=== PATIENT | female | born 1985 | race Caucasian/White ===

== ENCOUNTER → 2019-05-25 | Outpatient (CLI) | payer OTHER ==
--- NOTE | 2019-05-25 12:24 | REP ---
LEFT FOOT, FOUR VIEWS: There is no evidence of an acute fracture, dislocation or intrinsic bone disease. IMPRESSION: No fracture or dislocation. Electronically Signed by Chadwick Sands MD 05/25/2019 05:13 P
== END ==
LOC: M LRY 11:21
PROVIDERS: ATTEND Nurse Practitioner Family
DX: M79.672 Pain in left foot (principal)
CPT/HCPCS: 73630; 96372; G0463; J1885

== ENCOUNTER → 2019-10-02 | Outpatient (REF) | payer OTHER | LOC: M LAB REF 16:55 | PROVIDERS: ATTEND Family Medicine | DX: N76.0 Acute vaginitis (principal) ==

== ENCOUNTER → 2019-12-26 | Outpatient (CLI) | payer OTHER ==
[2019-12-26 15:36] LABS: HEMOGLOBIN A1c 5.1 %
[2019-12-26 15:53] LABS: FREE T4 1.18 NG/DL (0.76-1.46); THYROID STIMULATING HORMONE 1.11 uIU/ML (0.358-3.740)
== END ==
LOC: M PLALAB 11:44
PROVIDERS: ATTEND Family Medicine
DX: R63.5 Abnormal weight gain (principal)

== ENCOUNTER → 2020-05-01 | Outpatient (CLI) | payer OTHER ==
[2020-05-01 10:36] LABS: BASO % 0.3 % (0.0-1.0); BASO % 0.5 % (0.0-1.0); EOS # 0.1 10^3/uL (0.0-0.5); EOS % 2.1 % (0.0-3.0); HEMATOCRIT 44.8 % (36.0-47.0); HEMATOCRIT 45.4 % (36.0-47.0); HEMOGLOBIN 14.6 g/dl (12.0-15.5); HEMOGLOBIN 14.8 g/dl (12.0-15.5); LYMPH # 2.2 10^3/uL (1.5-5.0); LYMPH # 2.5 10^3/uL (1.5-5.0); LYMPH % 36.7 % (24.0-44.0); LYMPH % 37.7 % (24.0-44.0); MEAN CORPUSCULAR HEMOGLOBIN 28.6 pg (27.0-33.0); MEAN CORPUSCULAR HGB CONC 32.6 g/dl (32.0-36.5); MEAN CORPUSCULAR VOLUME 87.8 fl (80.0-96.0); MONO # 0.5 10^3/uL (0.0-0.8); MONO % 7.4 % (0.0-5.0); MONO % 7.6 % (0.0-5.0); NEUTROPHILS # 3.2 10^3/uL (1.5-8.5); NEUTROPHILS # 3.4 10^3/uL (1.5-8.5); NEUTROPHILS % 52.9 % (36.0-66.0); PLATELET COUNT, AUTOMATED 277 10^3/uL (150-450); PLATELET COUNT, AUTOMATED 287 10^3/uL (150-450); RED BLOOD COUNT 5.17 10^6/uL (4.00-5.40); WHITE BLOOD COUNT 6.6 10^3/uL (4.0-10.0)
[2020-05-01 11:05] LABS: ALBUMIN 4.2 GM/DL (3.2-5.2); ALT/SGPT 44 U/L (12-78); BILIRUBIN,TOTAL 0.5 MG/DL (0.2-1.0); BLOOD UREA NITROGEN 8 MG/DL (7-18); CALCIUM LEVEL 9.5 MG/DL (8.5-10.1); CARBON DIOXIDE LEVEL 29 MEQ/L (21-32); CHLORIDE LEVEL 104 MEQ/L (98-107); CREATININE FOR GFR 0.64 MG/DL (0.55-1.30); GLOMERULAR FILTRATION RATE > 60.0 (>60); GLUCOSE, FASTING 84 MG/DL (70-100); POTASSIUM SERUM 4.3 MEQ/L (3.5-5.1); RHEUMATOID FACTOR QUANT < 10.0 IU/ML (<15.0); SODIUM LEVEL 138 MEQ/L (136-145); TOTAL 25(OH) VITAMIN D 34.3 NG/ML (30.0-100.0); TOTAL PROTEIN 7.5 GM/DL (6.4-8.2)
[2020-05-01 11:12] LABS: ALT/SGPT 43 U/L (12-78); BILIRUBIN,TOTAL 0.4 MG/DL (0.2-1.0); BLOOD UREA NITROGEN 7 MG/DL (7-18); CALCIUM LEVEL 9.3 MG/DL (8.5-10.1); CARBON DIOXIDE LEVEL 28 MEQ/L (21-32); CHLORIDE LEVEL 106 MEQ/L (98-107); CREATININE FOR GFR 0.65 MG/DL (0.55-1.30); FREE T4 1.07 NG/DL (0.76-1.46); GLOMERULAR FILTRATION RATE > 60.0 (>60); GLUCOSE, FASTING 86 MG/DL (70-100); IRON (FE) 78 UG/DL (50-170); PERCENT SATURATION 26.6 % (13.2-45.0); POTASSIUM SERUM 4.3 MEQ/L (3.5-5.1); SODIUM LEVEL 140 MEQ/L (136-145); TOTAL IRON BINDING CAPACITY 293 UG/DL (250-450); TOTAL PROTEIN 7.3 GM/DL (6.4-8.2)
[2020-05-01 11:13] LABS: TOTAL 25(OH) VITAMIN D 36.4 NG/ML (30.0-100.0)
[2020-05-01 11:43] LABS: ERYTHROCYTE SEDIMENTATION RATE 5 mm/hr (0-20)
[2020-05-02 14:12] LABS: ANTINUCLEAR ANTIBODIES DIRECT Negative (Negative)
== END ==
LOC: M PLALAB 08:48
PROVIDERS: ATTEND Psychiatry & Neurology Neurology
DX: R53.83 Other fatigue (principal)

== ENCOUNTER → 2020-05-26 | Outpatient (REF) | payer OTHER | LOC: M WUC 15:44 | PROVIDERS: ATTEND Physician Assistant | DX: J02.9 Acute pharyngitis, unspecified (principal) ==

== ENCOUNTER → 2020-09-03 | Outpatient (CLI) | payer OTHER ==
--- NOTE | 2020-09-08 00:45 | ECWPNPC ---
PATIENT NAME: STEPHANIE SEYMOUR : 1985 GENDER: FEMALE VISIT DATE: 09/03/2020 DISCHARGE DATE: 09/03/20925 VISIT LOCKED DATE TIME: PHYSICIAN: GREG FARRAR RESOURCE: GREG FARRAR REASON FOR APPOINTMENT 1. NECK PAIN HISTORY OF PRESENT ILLNESS GENERAL: PLEASANT 35-YEAR-OLD FEMALE REFERRED BY [facility], DR. SITA CASTELAN TO EVALUATE PERSISTENT RIGHT-SIDED NECK PAIN. STATES PAIN BEGAN IN 2017. DENIES PRECIPITATING EVENT. DESCRIBES CONSTANT PAIN THAT EXTENDS INTO THE RIGHT SCAPULAR REGION. PAIN EXTENDS INTO THE RIGHT UPPER ARM. PAIN IS AGGRAVATED BY USE OF RIGHT ARM. MRI OF THE CERVICAL SPINE DONE IN 2019 IS REVIEWED. SHOWING DISC PROTRUSION AT C5-6 AND C6-7. THERE IS ALSO ANNULAR TEAR NOTED AT THOSE 2 LEVELS WELL. HAD CERVICAL EPIDURAL STEROID INJECTION IN 2018 IN [place] AND REPORTS SIGNIFICANT REDUCTION IN PAIN FOR GREATER THAN 2 MONTHS POST PROCEDURE AND THEN PAIN RETURNED TO BASELINE.-HISTORY OF PSEUDOTUMOR CEREBRI AND HAD GAS TORCH BRAZIER SHUNT PLACED IN 2005 WITH RESOLUTION OF ABNORMAL VISION POST SHUNT. FOLLOWING WITH [facility] FOR CHRONIC MIGRAINE HEADACHE AND IS CONSIDERING BOTOX AND/OR OCCIPITAL NERVE BLOCK. REPORTING NORMAL BOWEL AND BLADDER FUNCTION. NO SIGNIFICANT ILLNESS OR WEIGHT LOSS OR GAIN. DENIES SADDLE PARESTHESIAS. FALL RISK SCREENING: SCREENING :NO FALLS REPORTED IN THE LAST YEAR PAIN SCREENING: PATIENT HAS A COMPLAINT OF ACUTE OR CHRONIC PAIN :YES LOCATION OF PAIN:NECK, RIGHT SHOULDER INTENSITY OF PAIN (SCALE OF 1 TO 10):7 WHAT DOES YOUR PAIN FEEL LIKE:ACHING, CONTINOUS, SHARP DURATION:CONTINOUS, CONSTANT, AWAKENS FROM SLEEP PAIN IS INCREASED BY:ACTIVITIES, PROLONGED STANDING PAIN IS DECREASED BY:OTHERS NOTHING HELPS THE PAIN. NURSING NOTE: -. PAIN CENTER INTAKE QUESTIONS: DO YOU HAVE A HISTORY OF MRSA? :NO DO YOU TAKE A BLOOD THINNERS? :NO DO YOU HAVE ANY BLEEDING DISORDERS? :NO ANY NEW NUMBNESS OR WEAKNESS IN YOUR LEGS OR ARMS? :NO ANY PACEMAKER,DEFIBRILLATOR, OR DORSAL COLUMN STIMULATOR? :NO DO YOU HAVE ANY RASHES OR OPEN SORES? :NO ARE YOU ALLERGIC TO IV DYE? :NO ARE YOU DIABETIC? :NO ANY NEW PROBLEMS WITH YOUR MEDICATIONS? :NO HAVE YOU RECEIVED A VACCINE IN THE PAST 30 DAYS? :NO DO YOU PLAN TO RECEIVE A VACCINE IN THE NEXT 21 DAYS? :NO DO YOU NEED ANY PRESCRIPTION? :NO DO YOU TAKE ANY IMMUNOSUPPRESSIVE MEDICATIONS? :NO IS THERE A CHANCE YOU COULD BE ? :NO ARE YOU BREAST FEEDING? :NO CURRENT MEDICATIONS TAKING ADDERALL XR 5 MG CAPSULE EXTENDED RELEASE 24 HOUR 2 CAPSULES IN THE MORNING ORALLY ONCE A DAY TAKING XANAX 0.5 MG TABLET 1 TABLET ORALLY TWICE A DAY, NOTES: PRN TAKING NAPROXEN 500 MG TABLET 1 TABLET WITH FOOD OR MILK NEEDED ORALLY EVERY 12 HRS UNKNOWN PREDNISONE 20 MG TABLET 1 TABLET ORALLY TID X 7 DAYS THEN BID X 2 DAYS THEN DAILY X 2 DAYS UNKNOWN VALTREX 1 GM TABLET 1 TABLET ORALLY THREE TIMES A DAY MEDICATION LIST REVIEWED AND RECONCILED WITH THE PATIENT PAST MEDICAL HISTORY CHRONIC MIGRAINE H/O PSEUDOTUMOR CEREBRI CERVICAL SPONDYLOSIS LEFT CARPAL TUNNEL INCIDENTAL ANEURYSM 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 1DAUGHTER(S) - HEALTHY. SOCIAL HISTORY GENERAL: TOBACCO USE ARE YOU A: NEVER SMOKER LATEX QUESTIONNAIRE LATEX ALLERGY : HAVE YOU EVER DEVELOPED ANY TYPE OF REACTION AFTER HANDLING LATEX PRODUCTS SUCH RUBBER GLOVES, CONDOMS, DIAPHRAGMS, BALLOONS, SOCKS, OR UNDERWEAR?NO LATEX ALLERGY : HAVE YOU EVER DEVELOPED ANY TYPE OF REACTION DURING OR AFTER DENTAL APPOINTMENT, VAGINAL/RECTAL EXAMINATION, SURGICAL PROCEDURE, OR ANY OTHER EXPOSURE?NO LATEX RISK : HAVE YOU EVER HAD ANY DIFFICULTY BREATHING OR HIVES AFTER EATING OR HANDLING ANY FRUITS, OR VEGETABLES; SUCH KIWI, BANANAS, STONE FRUITS, OR CHESTNUTSNO LATEX RISK : DO YOU HAVE A PREVIOUS PERSONAL HISTORY OF MORE THAN NINE SURGERIES, SPINA BIFIDA, OR REPEATED CATHERIZATIONS? NO LATEX RISK : ARE YOU FREQUENTLY EXPOSED TO LATEX PRODUCTS IN YOUR OCCUPATION?NO DATE ASKED : 09/03/2020 ALCOHOL USE: NO. RECREATIONAL DRUG USE DRUG USE?NO LANGUAGE LANGUAGES SPOKEN:INDONESIAN LEARNING BARRIERS / SPECIAL NEEDS BARRIERS TO LEARNING?NO HEARING IMPAIRED?NO VISION IMPAIRED?YES :CORRECTIVE LENSES COGNITIVELY IMPAIRED?NO READINESS TO LEARN?YES LEARNING PREFERENCES?NO LEARNING CAPABILITIES PRESENT?YES EMOTIONAL BARRIERS?NO SPECIAL DEVICES?NO CUSTOMER SERVICE AND SALES CONSULTANT NEEDED?NO HOSPITALIZATION/MAJOR DIAGNOSTIC PROCEDURE FROM SURGERIES REVIEW OF SYSTEMS CONSTITUTIONAL: RECENT ILLNESS DENIES . FEVER DENIES . WEIGHT LOSS DENIES . MUSCULOSKELETAL: JOINT PAIN DENIES . JOINT STIFFNESS DENIES . GASTROENTEROLOGY: BOWEL INCONTINENCE DENIES . BLOOD IN STOOL DENIES . HEMATOLOGY/LYMPH: DENIES . BLEEDING DISORDER DENIES . NEUROLOGY: HISTORY OF SEVERE HEADACHES NOT MENTIONED DENIES . SEIZURES DENIES . CARDIOLOGY: HISTORY OF CHEST PAIN,IRREGULAR HEART BEAT NOT MENTIONED DENIES . SHORTNESS OF BREATH DENIES . RESPIRATORY: COUGH DENIES . SHORTNESS OF BREATH DENIES . ENDOCRINOLOGY: THYROID DISEASE DENIES . DIABETES DENIES . HEENT: CHANGE IN VISION DENIES . LOSS OF HEARING DENIES . TROUBLE SWALLOWING DENIES . PSYCHOLOGY: ANXIETY DENIES . DEPRESSION DENIES . UROLOGY: URINARY INCONTINENCE DENIES . BLOOD IN URINE DENIES . VITAL SIGNS WT 179.6 LBS, WT-KG 179.6 KG, HT 66 IN, BMI 28.99 INDEX, BP 148/92 MM HG, HR 70 /MIN, RR 18 /MIN, TEMP 100.7 F, OXYGEN SAT % 98%, SAFE IN ENV? (Y/N) YES, [facility]: [facility] SIG[facility] OBTAINED AND PROVIDED TO PROVIDER. JUSTINO SALMON MA. EXAMINATION GENERAL EXAMINATION: HEENT:HEAD:, NORMOCEPHALIC, EYES:, EYES NORMAL, NOSE:, NOSE CLEAR, THROAT: NORMAL. LUNGS:LUNG SOUNDS ARE CLEAR. HEART:HEART RATE REGULAR. ABDOMEN:SOFT AND NOT TENDER, NON-DISTENDED. MUSCULOSKELETAL:*. LUMBAR:MUSCLE STRENGTH TESTING 5/5 BILATERAL, PALPATION: NEGATIVE FOR PAIN OVER L/S SPINE. NEGATIVE FOR PAIN OVER L/S PARSPINALS. THORACIC SPINE:NEGATIVE FOR PAIN WITH PALPATION OF THORACIC SPINE. NEGATIVE FOR PAIN WITH PALPATION OF THORACIC PARASPINAL. CERVICAL:NEGATIVE FOR PAIN WITH PALPATION OF CERVICAL SPINE. NEGATIVE FOR PAIN WITH PALPATION OF CERVICAL PARASPINALS. NEGATIVE FOR PAIN WITH PALPATION OF TRAPEZIUS BILAT. SKIN:NORMAL, NO RASH. NEUROLOGIC EXAM:ALERT AND ORIENTED X 3, DTRS 1-2+ IN ALL 4 EXTREMITIES, DENIES UPPER EXTREMETIES SENSORY LOSS, DENIES LOWER EXTREMETIES SENSORY LOSS. DIAGNOSTIC:MRI-CERVICAL SPINE 2019. 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 CLINICAL NOTES: 09/03/2020 PROCEDURE AND PRE-PROCEDURE INFORMATION PROVIDED TO PATIENT. PATIENT VERBALIZED UNDERSTANDING. MERY CALLAHAN. OTHERS CLINICAL NOTES: ISTOP REGISTRY REVIEWED AND DEMONSTRATES COMPLIANCE. . PROCEDURE CODES FA211 ESTABILISHED PATIENT [facility] CHARGE DISPOSITION & COMMUNICATION FOLLOW UP POST PROCEDURE (REASON: CERVICAL EPIDURAL STEROID INJECTION C7, T1) ELECTRONICALLY SIGNED BY RENALDO HANSEN ON 09/07/2020 AT 08:26 AM EST DISCLAIMER : THIS IS A VISIT SUMMARY EXTRACTED FROM THE [employer] CH[facility]. IT IS NOT A COPY OF THE [employer] PROGRESS NOTE. ISABELLA
== END ==
LOC: M PAIN 08:30
PROVIDERS: ATTEND Nurse Practitioner Family
DX: M50.20 Other cervical disc displacement, unspecified cervical region (principal); M54.12 Radiculopathy, cervical region; G43.909 Migraine, unspecified, not intractable, without status migrainosus; Z88.5 Allergy status to narcotic agent; Z88.8 Allergy status to other drugs, medicaments and biological substances; Z79.899 Other long term (current) drug therapy

== ENCOUNTER → 2020-09-07 | Outpatient (CLI) | payer OTHER | LOC: M LABSMTC 12:42 | PROVIDERS: ATTEND Anesthesiology | DX: Z20.828 Contact with and (suspected) exposure to other viral communicable diseases (principal) ==

== ENCOUNTER → 2020-09-11 | Outpatient (CLI) | payer OTHER ==
[~2020-09-11] MED LIST: ISOVUE-M 300 61% 15ML VIAL As Ordered ONE; LIDOCAINE 1% SDV 30ML VIAL As Ordered ONE; NORCO, ANEXSIA 5/325MG TABLET (HYDROcodone/ACETAMINOPHEN) As Ordered ONE; diazePAM 5MG TABLET As Ordered ONE; diphenhydrAMINE 25MG CAP As Ordered ONE; methylPREDNISolone SUSP 40MG/ML 1ML VIAL (DEPO MEDROL) As Ordered ONE
--- NOTE | 2020-09-11 16:05 | REP ---
INDICATION: CERVICAL EPIDURAL STEROID INJECTION. COMPARISON: None. TECHNIQUE: Four views. 12.4 seconds of fluoroscopy time is reported. FINDINGS: A sequence of 4 last image hold fluoroscopically obtained spot radiograph(s) of the cervical spine document(s) needle position(s) and contrast injection associated with injection procedure. IMPRESSION: Procedural imaging. <Electronically signed by Booker Blanton > 09/11/20 1609
--- NOTE | 2020-09-15 00:19 | ECWPNPC ---
"PATIENT NAME: STEPHANIE SEYMOUR : 1985 GENDER: FEMALE VISIT DATE: 09/11/2020 DISCHARGE DATE: 09/11/20 0000 VISIT LOCKED DATE TIME: PHYSICIAN: DWAYNE SORIANO MD RESOURCE: DWAYNE SORIANO MD REASON FOR APPOINTMENT 1. CERVICAL EPIDURAL STEROID INJECTION HISTORY OF PRESENT ILLNESS GENERAL: -. FALL RISK SCREENING: SCREENING :NO FALLS REPORTED IN THE LAST YEAR PAIN SCREENING: PATIENT HAS A COMPLAINT OF ACUTE OR CHRONIC PAIN :YES LOCATION OF PAIN: NECK INTO RIGHT SHOULDER INTENSITY OF PAIN (SCALE OF 1 TO 10):7 WHAT DOES YOUR PAIN FEEL LIKE:CONTINOUS, ACHING, SHARP, SORE DURATION:CONTINOUS, AWAKENS FROM SLEEP PAIN IS INCREASED BY:ACTIVITIES PLAN/GOALS/TREATMENT/INTERVENTION/FOLLOW UP:SEE PLAN NURSING NOTE: -. PAIN CENTER INTAKE QUESTIONS: DO YOU HAVE A HISTORY OF MRSA? :NO DO YOU TAKE A BLOOD THINNERS? :NO DO YOU HAVE ANY BLEEDING DISORDERS? :NO ANY NEW NUMBNESS OR WEAKNESS IN YOUR LEGS OR ARMS? :NO ANY PACEMAKER,DEFIBRILLATOR, OR DORSAL COLUMN STIMULATOR? :NO DO YOU HAVE ANY RASHES OR OPEN SORES? :NO ARE YOU ALLERGIC TO IV DYE? :NO ARE YOU DIABETIC? :NO ANY NEW PROBLEMS WITH YOUR MEDICATIONS? :NO HAVE YOU RECEIVED A VACCINE IN THE PAST 30 DAYS? :NO DO YOU PLAN TO RECEIVE A VACCINE IN THE NEXT 21 DAYS? :NO DO YOU NEED ANY PRESCRIPTION? :NO DO YOU TAKE ANY IMMUNOSUPPRESSIVE MEDICATIONS? :NO ANY HISTORY OF SEIZURES? :NO ANY HISTORY OF CARDIAC ISSUES OR EVENTS? :NO DO YOU HAVE SLEEP APNEA? :NO ANY RECENT HEAD INJURY? :NO DO YOU HAVE ANY NEW INFECTIONS? :NO IS THERE A CHANCE YOU COULD BE ? :NO ARE YOU BREAST FEEDING? :NO WHEN DID YOU LAST EAT? : 09/10 1999 WHEN DID YOU LAST DRINK? : 09/11 08 WHAT DID YOU LAST DRINK? : COFFEE NAME OF PERSON DRIVING YOU HOME? : (MADDY) DO YOU HAVE ANY OTHER QUESTIONS OR CONCERNS? : NO CURRENT MEDICATIONS TAKING ADDERALL XR 5 MG CAPSULE EXTENDED RELEASE 24 HOUR 2 CAPSULES IN THE MORNING ORALLY ONCE A DAY TAKING XANAX 0.5 MG TABLET 1 TABLET ORALLY TWICE A DAY, NOTES: PRN TAKING NAPROXEN 500 MG TABLET 1 TABLET WITH FOOD OR MILK NEEDED ORALLY EVERY 12 HRS UNKNOWN PREDNISONE 20 MG TABLET 1 TABLET ORALLY TID X 7 DAYS THEN BID X 2 DAYS THEN DAILY X 2 DAYS UNKNOWN VALTREX 1 GM TABLET 1 TABLET ORALLY THREE TIMES A DAY MEDICATION LIST REVIEWED AND RECONCILED WITH THE PATIENT PAST MEDICAL HISTORY CHRONIC MIGRAINE H/O PSEUDOTUMOR CEREBRI CERVICAL SPONDYLOSIS LEFT CARPAL TUNNEL INCIDENTAL ANEURYSM 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 ALLERGIES TOPAMAX: BLINDNESS; HISTORY OF OPEN ANGLE GLAUCOMA - ALLERGY LEXAPRO: BLINDNESS - ALLERGY VICODIN: ITCHY - SIDE EFFECTS SOCIAL HISTORY GENERAL: TOBACCO USE ARE YOU A: NEVER SMOKER LATEX QUESTIONNAIRE LATEX ALLERGY : HAVE YOU EVER DEVELOPED ANY TYPE OF REACTION AFTER HANDLING LATEX PRODUCTS SUCH RUBBER GLOVES, CONDOMS, DIAPHRAGMS, BALLOONS, SOCKS, OR UNDERWEAR?NO LATEX ALLERGY : HAVE YOU EVER DEVELOPED ANY TYPE OF REACTION DURING OR AFTER DENTAL APPOINTMENT, VAGINAL/RECTAL EXAMINATION, SURGICAL PROCEDURE, OR ANY OTHER EXPOSURE?NO LATEX RISK : HAVE YOU EVER HAD ANY DIFFICULTY BREATHING OR HIVES AFTER EATING OR HANDLING ANY FRUITS, OR VEGETABLES; SUCH KIWI, BANANAS, STONE FRUITS, OR CHESTNUTSNO LATEX RISK : DO YOU HAVE A PREVIOUS PERSONAL HISTORY OF MORE THAN NINE SURGERIES, SPINA BIFIDA, OR REPEATED CATHERIZATIONS? NO LATEX RISK : ARE YOU FREQUENTLY EXPOSED TO LATEX PRODUCTS IN YOUR OCCUPATION?NO DATE ASKED : 09/11/2020 ALCOHOL USE: NO. RECREATIONAL DRUG USE DRUG USE?NO LANGUAGE LANGUAGES SPOKEN:NEW ZEALANDER LEARNING BARRIERS / SPECIAL NEEDS BARRIERS TO LEARNING?NO HEARING IMPAIRED?NO VISION IMPAIRED?YES COGNITIVELY IMPAIRED?NO :CORRECTIVE LENSES READINESS TO LEARN?YES LEARNING PREFERENCES?NO LEARNING CAPABILITIES PRESENT?YES EMOTIONAL BARRIERS?NO SPECIAL DEVICES?NO MANAGER SUPPORT SERVICES NEEDED?NO VITAL SIGNS WT 180.4 LBS, HT 66 IN, BMI 29.11 INDEX, BP 144/71 MM HG, HR 84 /MIN, RR 18 /MIN, TEMP 98.1 F, OXYGEN SAT % 94%, SAFE IN ENV? (Y/N) YES, NA INITIALS AW 1417, REVIEWED BY: Susanne LEDESMA RN BSN. EXAMINATION GENERAL EXAMINATION: THE PATIENT IS ALERT, ORIENTED TIMES THREE AND COOPERATIVE. LUNGS ARE CLEAR TO AUSCULTATION. HEART SHOWS REGULAR RHYTHM, NO MURMURS AND NO GALLOPS. ASSESSMENTS CERVICAL DISC DISORDER WITH RADICULOPATHY, UNSPECIFIED CERVICAL REGION - M50.10 (PRIMARY) TREATMENT CERVICAL DISC DISORDER WITH RADICULOPATHY, UNSPECIFIED CERVICAL REGION [facility] FLUORO GUIDE SPINE INJECTION (PAIN)[id number] SALINE CARRI LONDONO 09/11/2020 3:02:26 PM > #22 SL STARTED X 1 ATTEMPT IN LEFT FA BY THIS SCIENTIFIC ARTIST. SITE ASYMPTOMATIC. FLUSHES WELL. PATIENT TOLERATED WELL JENNY HAWKINS 09/11/2020 03:35:50 PM - GIVE LACTATED RINGERS KVO SHARRI LEDESMA 09/11/2020 4:35:37 PM > PATIENT GIVEN A TOTAL OF 50 CCS OF LR. MEDICATION: VALIUM TAB 10MG ORALLY (DIAZEPAM)IMANI PALOMO R 09/11/2020 2:40:18 PM > VERIFIED SHARRI LEDESMA 09/11/2020 2:47:28 PM > ADMINISTERED. COMPLETION OF PROCEDURAL VISIT WHEN MEETS CRITERIA MEDICATION: (PAIN) BENADRYL TAB 25MG ORALLY (DIPHENHYDRAMINE)YAMEL PALOMOIL R 09/11/2020 2:40:30 PM > VERIFIED SHARRI LEDESMA 09/11/2020 2:47:48 PM > ADMINISTERED. MEDICATION: (PAIN) NORCO TABLET 5MG/325MG ORALLY (HYDROCODONE/ACETAMINOPHEN)JENNY HAWKINS 09/11/2020 02:22:15 PM - GIVE 2 TABS PETRYAMEL GARNERIL R 09/11/2020 2:40:43 PM > VERIFIED SHARRI LEDESMA 09/11/2020 2:48:10 PM > ADMINISTERED. PROCEDURES PAIN NURSING RECORD PROCEDURE IN ROOM 1507, PHYSICIAN IN ROOM 1532, START 1538, FINISH 1545, PHYSICIAN OUT OF ROOM 1547, OUT OF ROOM 1550, ECG NORMAL SINUS, PATIENT SHIELDED YES, SAFETY STRAP YES, PREP BETADINE IWONA, ASSISTANT TERMINAL MANAGER, DRESSING TEGADERM LOC: SHARRI LEDESMA 09/11/2020 3:07:52 PM > 1. ALERT, ORIENTED, LOC REMAINED AT BASELINE THROUGHOUT THE PROCEDURE RESP: INGE LEDESMAISSA 09/11/2020 3:07:52 PM > 1. REGULAR, NO DYSPNEA COLOR: INGE LEDESMAISSA 09/11/2020 3:07:52 PM > 1. PINK SKIN: CALLIEINGESHARRI 09/11/2020 3:07:52 PM > 1. WARM, DRY POSITION: SHARRI LEDESMA 09/11/2020 3:07:52 PM > 1. PRONE VITALS: SHARRI LEDESMA 09/11/2020 3:21:42 PM > 140/65, 86, 100% RA. SHARRI LEDESMA 09/11/2020 3:30:45 PM > 150/86, 78, 100% RA. SHARRI LEDESMA 09/11/2020 3:42:03 PM > 150/87, 76, 100% RA. SHARRI LEDESMA 09/11/2020 3:44:57 PM > 151/85, 66, 100% RA. SHARRI LEDESMA 09/11/2020 3:59:36 PM > POST PROCEDURE 148/78, 71, 98% RA. COMPLETION OF PROCEDURE APPOINTMENT: POST PAIN 09/09, DRESSING SITE DRY AND INTACT, IV DISCONTINUED, SITE CLEAR, CATHETER INTACT, GAIT STEADY, TEACHING COMPLETED, PATIENT ACKNOWLEDGES UNDERSTANDING YES PATIENT GIVEN POST PROCEDURE INSTRUCTIONS, COVID HANDOUT AND PAIN DIARY, DISCUSSED WITH PATIENT, PATIENT VERBALIZED UNDERSTANDING. Susanne LEDESMA RN BSN, PROCEDURE APPOINTMENT COMPLETED AT BY: Susanne LEDESMA RN AT 1625, PATIENT DELAYED IN LEAVING DUE TO WAITING ON RIDE, PATIENT STABLE AT TIME OF DISCHARGE. PN CERVICAL EPIDURAL PRE PROCEDURE DIAGNOSIS CERVICAL DISC DISORDER WITH RADICULOPATHY POST PROCEDURE DIAGNOSIS CERVICAL DISC DISORDER WITH RADICULOPATHY PROCEDURE CERVICAL EPIDURAL STEROID INJECTION UNDER FLUOROSCOPIC GUIDANCE SURGEON DR. DWAYNE SORIANO SUPERVISOR THROWING DEPARTMENT NONE ANESTHESIA LOCAL PRE PROCEDURE NOTE THE PATIENT HAS A HISTORY OF CHRONIC CERVICAL PAIN. I EVALUATED THE PATIENT AND REVIEWED THE CHART. I WENT OVER THE RISKS, ALTERNATIVES, AND BENEFITS ASSOCIATED WITH THIS PROCEDURE. THE PATIENT WOULD LIKE TO PROCEED AND GIVE CONSENT TO PERFORMED THE PROCEDURE. THE PATIENT DENIES UNEXPLAINABLE WEIGHT LOSS, FEVER, CHILLS, OR NEW CHANGES IN URINARY OR BOWEL CONTROL. THE PATIENT IS COVID-19 NEGATIVE DESCRIPTION OF PROCEDURE THE PATIENT WAS BROUGHT TO THE PROCEDURE ROOM AND PLACED IN THE PRONE POSITION. THE CERVICOTHORACIC AREA WAS CLEANED WITH BETADINE SOLUTION AND DRAPED ASEPTICALLY. THE PROCEDURE WAS DONE UNDER STERILE CONDITIONS. A TIMEOUT WAS PERFORMED WHERE THE CONSENTED SITE WAS VERIFIED WITH EVERYONE IN THE ROOM. UNDER FLUOROSCOPIC GUIDANCE, THE TARGET WAS SELECTED AT THE INTERLAMINAR LEVEL OF C7-T1. I CONFIRMED AGAIN THE SITE OF THE TARGET. LIDOCAINE WAS USED TO NUMB THE SKIN AND THE SUBCUTANEOUS TISSUE BELOW IT. EPIDURAL TUOHY NEEDLE, 17-GAUGE, WAS ADVANCED UNDER FLUOROSCOPIC GUIDANCE AND FOLLOWING PATIENT FEEDBACK UNTIL THE EPIDURAL SPACE WAS REACHED 5 CM DEEP INTO THE SKIN BY THE LOSS OF RESISTANCE TECHNIQUE. ISOVUE-M DYE 30%, 0.25 ML, WAS INJECTED SHOWING ADEQUATE SPREAD OF THE DYE. THEN, A SOLUTION OF 3 ML OF NORMAL SALINE WITH DEPO-MEDROL 40MG WAS INJECTED SLOWLY FOLLOWING PATIENT FEEDBACK. THE MEDICATIONS WERE VERIFIED WITH THE NURSE. THERE WAS NO EVIDENCE OF BLOOD, PARESTHESIA OR CEREBROSPINAL FLUID DURING THE PROCEDURE. ESTIMATED BLOOD LOSS WAS LESS THAN 5 ML. THE PATIENT WAS SENT TO THE RECOVERY ROOM. THE PATIENT WAS MOVING THE EXTREMITIES AND DOING WELL. THERE WERE NO COMPLICATIONS DURING THE PROCEDURE. FLUOROSCOPY TIME WAS 12 SECONDS POST PROCEDURE NOTE THE PATIENT WILL BE SEEN IN A FOLLOW UP IN THE NEXT FEW WEEKS. I AM LOOKING FOR LONG LASTING RELIEF FOR THE PATIENT WITH THIS INTERVENTION. INSTRUCTIONS WERE GIVEN, QUESTIONS WERE ANSWERED, AND THE PATIENT EXPRESSED UNDERSTANDING AND AGREES WITH THE PLAN. I, JENNY HAWKINS, DOCUMENTED THE ABOVE INFORMATION ACTING A SCRIBE FOR DR. SORIANO. I HAVE REVIEWED THE ABOVE DOCUMENT, WRITTEN BY JENNY HAWKINS, VIROLOGIST, AND I VERIFY THAT IT IS ACCURATE PROCEDURE CODES 94736 CERVICAL/THORACIC W/ IMAGING DISPOSITION & COMMUNICATION FOLLOW UP FOLLOW UP WITH COMMERCIAL FINANCE ANALYST (REASON: POST CERVICAL EPIDURAL STEROID INJECTION) ELECTRONICALLY SIGNED BY DWAYNE SORIANO MD, MD ON 09/14/2020 AT 12:54 PM EST DISCLAIMER : THIS IS A VISIT SUMMARY EXTRACTED FROM THE [employer] CHART. IT IS NOT A COPY OF THE [employer] PROGRESS NOTE. MTDIona"
== END ==
LOC: M PAIN 14:00
PROVIDERS: ATTEND Anesthesiology
DX: M50.10 Cervical disc disorder with radiculopathy, unspecified cervical region (principal); G43.709 Chronic migraine without aura, not intractable, without status migrainosus; Z79.899 Other long term (current) drug therapy; Z88.5 Allergy status to narcotic agent; Z88.8 Allergy status to other drugs, medicaments and biological substances
CPT/HCPCS: 62321; J1030; Q9967

== ENCOUNTER → 2020-09-22 | Outpatient (CLI) | payer OTHER ==
[2020-09-23 13:06] LABS: TISSUE TRANSGLUTAMINASE IgA <2 U/mL (0-3); TISSUE TRANSGLUTAMINASE IgG 3 U/mL (0-5)
== END ==
LOC: M PLALAB 09:40
PROVIDERS: ATTEND Physician Assistant
DX: R19.7 Diarrhea, unspecified (principal)

== ENCOUNTER → 2020-09-24 | Outpatient (CLI) | payer OTHER ==
--- NOTE | 2020-09-29 03:06 | ECWPNPC ---
PATIENT NAME: STEPHANIE SEYMOUR : 1985 GENDER: FEMALE VISIT DATE: 09/24/2020 DISCHARGE DATE: 09/24/20 1002 VISIT LOCKED DATE TIME: PHYSICIAN: GREG FARRAR RESOURCE: GREG FARRAR REASON FOR APPOINTMENT 1. POST CERVICAL EPIDURAL STEROID INJECTION C7, T1 HISTORY OF PRESENT ILLNESS DEPRESSION SCREENING: PHQ-2 (2015 EDITION) LITTLE INTEREST OR PLEASURE IN DOING THINGS?NOT AT ALL FEELING DOWN, DEPRESSED, OR HOPELESS?NOT AT ALL TOTAL SCORE0 GENERAL: HERE FOR POST PROCEDURE F/U.HAD LINDA ON 09/11/20.REPORTING IMPROVEMENT-IN RIGHT NECK PAIN THAT CONTINUES TODAY.STATES SHE CONTINUES WITH RIGHT NECK,RIGHT SHOULDER AND THORACIC PAIN WHEN SHE USES RIGHT ARM.DISCUSSED TRIGGER POINT INJECTIONS. FALL RISK SCREENING: SCREENING :NO FALLS REPORTED IN THE LAST YEAR PAIN SCREENING: PATIENT HAS A COMPLAINT OF ACUTE OR CHRONIC PAIN :YES LOCATION OF PAIN:NECK INTENSITY OF PAIN (SCALE OF 1 TO 10):3 WHAT DOES YOUR PAIN FEEL LIKE:ACHING, CONTINOUS DURATION:CONTINOUS, CONSTANT, ALL DAY PAIN IS INCREASED BY:ACTIVITIES PAIN IS DECREASED BY:OTHERS HEAT AND ICE PACK NURSING NOTE: -. PAIN CENTER INTAKE QUESTIONS: DO YOU HAVE A HISTORY OF MRSA? :NO DO YOU TAKE A BLOOD THINNERS? :NO DO YOU HAVE ANY BLEEDING DISORDERS? :NO ANY NEW NUMBNESS OR WEAKNESS IN YOUR LEGS OR ARMS? :NO ANY PACEMAKER,DEFIBRILLATOR, OR DORSAL COLUMN STIMULATOR? :NO DO YOU HAVE ANY RASHES OR OPEN SORES? :NO ARE YOU ALLERGIC TO IV DYE? :NO ARE YOU DIABETIC? :NO ANY NEW PROBLEMS WITH YOUR MEDICATIONS? :NO HAVE YOU RECEIVED A VACCINE IN THE PAST 30 DAYS? :NO DO YOU PLAN TO RECEIVE A VACCINE IN THE NEXT 21 DAYS? :NO DO YOU NEED ANY PRESCRIPTION? :NO DO YOU TAKE ANY IMMUNOSUPPRESSIVE MEDICATIONS? :NO IS THERE A CHANCE YOU COULD BE ? :NO ARE YOU BREAST FEEDING? :NO CURRENT MEDICATIONS TAKING ADDERALL XR 5 MG CAPSULE EXTENDED RELEASE 24 HOUR 2 CAPSULES IN THE MORNING ORALLY ONCE A DAY TAKING XANAX 0.5 MG TABLET 1 TABLET ORALLY TWICE A DAY TAKING NAPROXEN 500 MG TABLET 1 TABLET WITH FOOD OR MILK NEEDED ORALLY EVERY 12 HRS NOT-TAKING PREDNISONE 20 MG TABLET 1 TABLET ORALLY TID X 7 DAYS THEN BID X 2 DAYS THEN DAILY X 2 DAYS NOT-TAKING VALTREX 1 GM TABLET 1 TABLET ORALLY THREE TIMES A DAY MEDICATION LIST REVIEWED AND RECONCILED WITH THE PATIENT PAST MEDICAL HISTORY CHRONIC MIGRAINE H/O PSEUDOTUMOR CEREBRI CERVICAL SPONDYLOSIS LEFT CARPAL TUNNEL INCIDENTAL ANEURYSM 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 ALLERGIES TOPAMAX: BLINDNESS; HISTORY OF OPEN ANGLE GLAUCOMA - ALLERGY LEXAPRO: BLINDNESS - ALLERGY VICODIN: ITCHY - SIDE EFFECTS SOCIAL HISTORY GENERAL: TOBACCO USE ARE YOU A: NEVER SMOKER LATEX QUESTIONNAIRE LATEX ALLERGY : HAVE YOU EVER DEVELOPED ANY TYPE OF REACTION AFTER HANDLING LATEX PRODUCTS SUCH RUBBER GLOVES, CONDOMS, DIAPHRAGMS, BALLOONS, SOCKS, OR UNDERWEAR?NO LATEX ALLERGY : HAVE YOU EVER DEVELOPED ANY TYPE OF REACTION DURING OR AFTER DENTAL APPOINTMENT, VAGINAL/RECTAL EXAMINATION, SURGICAL PROCEDURE, OR ANY OTHER EXPOSURE?NO LATEX RISK : HAVE YOU EVER HAD ANY DIFFICULTY BREATHING OR HIVES AFTER EATING OR HANDLING ANY FRUITS, OR VEGETABLES; SUCH KIWI, BANANAS, STONE FRUITS, OR CHESTNUTSNO LATEX RISK : DO YOU HAVE A PREVIOUS PERSONAL HISTORY OF MORE THAN NINE SURGERIES, SPINA BIFIDA, OR REPEATED CATHERIZATIONS? NO LATEX RISK : ARE YOU FREQUENTLY EXPOSED TO LATEX PRODUCTS IN YOUR OCCUPATION?NO DATE ASKED : 09/24/2020 ALCOHOL USE: NO. RECREATIONAL DRUG USE DRUG USE?NO LANGUAGE LANGUAGES SPOKEN:[place] LEARNING BARRIERS / SPECIAL NEEDS CHANGE FROM LAST VISIT?NO BARRIERS TO LEARNING?NO HEARING IMPAIRED?NO VISION IMPAIRED?YES :CORRECTIVE LENSES COGNITIVELY IMPAIRED?NO READINESS TO LEARN?YES LEARNING PREFERENCES?NO LEARNING CAPABILITIES PRESENT?YES EMOTIONAL BARRIERS?NO SPECIAL DEVICES?NO VALVE SETTER NEEDED?NO REVIEW OF SYSTEMS CONSTITUTIONAL: ANY RECENT FEVER NO, NO . CHILLS NO, NO . WEIGHT CHANGE OF UNKNOWN REASONS NO, NO . GASTROENTEROLOGY: NEW UNEXPLAINABLE CHANGES IN BOWEL CONTROL NO, NO . CONSTIPATION NO, NO . GENITOURINARY: ANY NEW CHANGE IN BLADDER CONTROL? NO, NO . NEUROLOGY: NEW ONSET DIZZINESS OR NEUROLOGICAL CHANGES NOT MENTIONED NO, NO . NEW NUMBNESS OR PAIN PATTERNS NOT MENTIONED AND PERTINENT TO TODAY'S VISIT NO, NO . CARDIOLOGY: NEW CHEST PRESSURE NO, NO . PATIENT DENIES NO, NO . RESPIRATORY: UNEXPLAINABLE COUGH NO, NO . NEW SHORTNESS OF BREATH NO, NO . VITAL SIGNS WT 183 LBS, HT 66 IN, BMI 29.53 INDEX, BP 137/89 MM HG, HR 62 /MIN, RR 18 /MIN, TEMP 97.5 F, OXYGEN SAT % 98%, SAFE IN ENV? (Y/N) YEST.WOLF ORDONEZ. EXAMINATION GENERAL EXAMINATION: GENERALNO ACUTE DISTRESS, WELL NOURISHED AND HYDRATED. PSYCHAPPROPRIATE MOOD AND AFFECT . NECK:NO LYMPHADENOPATHY, SUPPLE. LUNGS:CLEAR TO AUSCULTATION BILATERALLY, NO WHEEZES, RHONCHI, RALES. HEART:NO MURMURS, REGULAR RATE AND RHYTHM. MUSCULOSKELETAL: TRIGGER POINTS:RIGHT NECK,RIGHT SHOULDER,RIGHT THORACIC.PAIN IS AGGREVATED IN THIS AREA WITH ROJM RIGHT ARM. ASSESSMENTS MYALGIA, OTHER SITE - M79.18 (PRIMARY) OTHER CHRONIC PAIN - G89.29 TREATMENT MYALGIA, OTHER SITE MED: PAIN BENADRYL TAB 25MG ORALLY DIPHENHYDRAMINE (ORDERED FOR 10/01/2020) MEDICATION: VALIUM TAB 10MG ORALLY (DIAZEPAM) (ORDERED FOR 10/01/2020) MED: PAIN NORCO TABLET 5MG/325MG ORALLY HYDROCODONE/ACETAMINOPHEN (ORDERED FOR 10/01/2020) SALINE LOCK (ORDERED FOR 10/01/2020) NOTES: TRIGGER POINT INJECTIONS RIGHT NECK,RIGHT SHOULDER,RIGHT THORACIC PRINTED AND REVIEWED PRE PROCEDURE WITH PATIENT JatinderWOLF ORDONEZ. OTHER CHRONIC PAIN PAIN PROCEDURE LOGDATE OF PROCEDURE1PROCEDURE:CERVICAL EPIDURAL STEROID INJECTIONAMOUNT OF PRE SEDATEVALIUM 10MG, BENADRYL 25MG, NORCO 5/325MGRESULT:SOME IMPROVEMENT CONTINUES TODAY PROCEDURE CODES FA211 ESTABILISHED PATIENT [facility] FACILITY CHARGE DISPOSITION & COMMUNICATION FOLLOW UP POST PROC (REASON: TRIGGER POINT INJECTIONS RIGHT NECK,RIGHT SHOULDER,RIGHT THORACIC) ELECTRONICALLY SIGNED BY RENALDO HANSEN ON 09/28/2020 AT 09:27 AM EST DISCLAIMER : THIS IS A VISIT SUMMARY EXTRACTED FROM THE [employer] CHART. IT IS NOT A COPY OF THE [employer] PROGRESS NOTE. ISABELLA
== END ==
LOC: M PAIN 09:15
PROVIDERS: ATTEND Nurse Practitioner Family
DX: G89.29 Other chronic pain (principal); M79.18 Myalgia, other site; G43.709 Chronic migraine without aura, not intractable, without status migrainosus; M47.812 Spondylosis without myelopathy or radiculopathy, cervical region; G51.0 Bell's palsy; Z79.899 Other long term (current) drug therapy; Z88.5 Allergy status to narcotic agent; Z88.8 Allergy status to other drugs, medicaments and biological substances

== ENCOUNTER → 2020-09-27 | Outpatient (CLI) | payer OTHER | LOC: M LABSMTC 11:01 | PROVIDERS: ATTEND Anesthesiology | DX: Z11.52 Encounter for screening for COVID-19 (principal) ==

== ENCOUNTER → 2020-10-02 | Outpatient (CLI) | payer OTHER ==
[~2020-10-02] MED LIST changes: +BUPIVACAINE HCL 0.25% 10ML VIAL As Ordered ONE; +BUPIVACAINE HCL 0.25% 30ML VIAL As Ordered ONE; -ISOVUE-M 300 61% 15ML VIAL As Ordered ONE; -LIDOCAINE 1% SDV 30ML VIAL As Ordered ONE; +TRIAMCINOLONE ACETONIDE SUSP 40 MG/ML VIAL (J3301) As Ordered ONE; -methylPREDNISolone SUSP 40MG/ML 1ML VIAL (DEPO MEDROL) As Ordered ONE
--- NOTE | 2020-10-07 00:52 | ECWPNPC ---
PATIENT NAME: STEPHANIE SEYMOUR : 1985 GENDER: FEMALE VISIT DATE: 10/02/2020 DISCHARGE DATE: 10/02/20 1125 VISIT LOCKED DATE TIME: PHYSICIAN: DWAYNE SORIANO MD RESOURCE: DWAYNE SORIANO MD REASON FOR APPOINTMENT 1. TRIGGER POINT INJECTIONS RIGHT NECK,RIGHT SHOULDER,RIGHT THORACIC HISTORY OF PRESENT ILLNESS GENERAL: -. FALL RISK SCREENING: SCREENING : NO FALLS REPORTED IN THE LAST YEAR. PAIN SCREENING: PATIENT HAS A COMPLAINT OF ACUTE OR CHRONIC PAIN :YES LOCATION OF PAIN:NECK, RIGHT SHOULDER, MID BACK RIGHT THORACIC INTENSITY OF PAIN (SCALE OF 1 TO 10):5 AVERAGING 4-5/10 WHAT DOES YOUR PAIN FEEL LIKE:ACHING, CONTINOUS, SHARP, TENDER, SORE SOMETIMES SHARP DURATION:CONTINOUS, CONSTANT, AWAKENS FROM SLEEP PAIN IS INCREASED BY:ACTIVITIES PAIN IS DECREASED BY: NOTHING PAIN HAS INTERFERED WITH THE FOLLOWING: EVERYTHING NURSING NOTE: -. PAIN CENTER INTAKE QUESTIONS: DO YOU HAVE A HISTORY OF MRSA? :NO DO YOU TAKE A BLOOD THINNERS? :NO DO YOU HAVE ANY BLEEDING DISORDERS? :NO ANY NEW NUMBNESS OR WEAKNESS IN YOUR LEGS OR ARMS? :NO ANY PACEMAKER,DEFIBRILLATOR, OR DORSAL COLUMN STIMULATOR? :NO DO YOU HAVE ANY RASHES OR OPEN SORES? :NO ARE YOU ALLERGIC TO IV DYE? :NO ARE YOU DIABETIC? :NO ANY NEW PROBLEMS WITH YOUR MEDICATIONS? :NO HAVE YOU RECEIVED A VACCINE IN THE PAST 30 DAYS? :NO DO YOU PLAN TO RECEIVE A VACCINE IN THE NEXT 21 DAYS? :NO DO YOU TAKE ANY IMMUNOSUPPRESSIVE MEDICATIONS? :NO ANY HISTORY OF SEIZURES? :NO ANY HISTORY OF CARDIAC ISSUES OR EVENTS? :NO DO YOU HAVE ANY KIDNEY OR LIVER DISEASE? :NO DO YOU HAVE SLEEP APNEA? :NO ANY RECENT HEAD INJURY? :NO DO YOU HAVE ANY NEW INFECTIONS? :NO IS THERE A CHANCE YOU COULD BE ? :NO ARE YOU BREAST FEEDING? :NO WHEN DID YOU LAST EAT? : 10/01/20 56421 WHEN DID YOU LAST DRINK? : 0700 WHAT DID YOU LAST DRINK? : WATER NAME OF PERSON DRIVING YOU HOME? : MADDY DO YOU HAVE ANY OTHER QUESTIONS OR CONCERNS? : NONE CURRENT MEDICATIONS TAKING ADDERALL XR 5 MG CAPSULE EXTENDED RELEASE 24 HOUR 2 CAPSULES IN THE MORNING ORALLY ONCE A DAY TAKING XANAX 0.5 MG TABLET 1 TABLET ORALLY TWICE A DAY, NOTES: 10/01/20 TAKING NAPROXEN 500 MG TABLET 1 TABLET WITH FOOD OR MILK NEEDED ORALLY EVERY 12 HRS, NOTES: 10/01/20 NOT-TAKING PREDNISONE 20 MG TABLET 1 TABLET ORALLY TID X 7 DAYS THEN BID X 2 DAYS THEN DAILY X 2 DAYS NOT-TAKING VALTREX 1 GM TABLET 1 TABLET ORALLY THREE TIMES A DAY MEDICATION LIST REVIEWED AND RECONCILED WITH THE PATIENT PAST MEDICAL HISTORY CHRONIC MIGRAINE H/O PSEUDOTUMOR CEREBRI CERVICAL SPONDYLOSIS LEFT CARPAL TUNNEL INCIDENTAL ANEURYSM 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 RIGHT NECK, SHOULDER AND THORACIC PAIN ALLERGIES TOPAMAX: BLINDNESS; HISTORY OF OPEN ANGLE GLAUCOMA - ALLERGY LEXAPRO: BLINDNESS - ALLERGY VICODIN: ITCHY - ALLERGY SURGICAL HISTORY BRAIN SHUNT 2006 TONISILLECTOMY 2008 SOCIAL HISTORY GENERAL: TOBACCO USE ARE YOU A: NEVER SMOKER LATEX QUESTIONNAIRE LATEX ALLERGY : HAVE YOU EVER DEVELOPED ANY TYPE OF REACTION AFTER HANDLING LATEX PRODUCTS SUCH RUBBER GLOVES, CONDOMS, DIAPHRAGMS, BALLOONS, SOCKS, OR UNDERWEAR?NO LATEX ALLERGY : HAVE YOU EVER DEVELOPED ANY TYPE OF REACTION DURING OR AFTER DENTAL APPOINTMENT, VAGINAL/RECTAL EXAMINATION, SURGICAL PROCEDURE, OR ANY OTHER EXPOSURE?NO LATEX RISK : HAVE YOU EVER HAD ANY DIFFICULTY BREATHING OR HIVES AFTER EATING OR HANDLING ANY FRUITS, OR VEGETABLES; SUCH KIWI, BANANAS, STONE FRUITS, OR CHESTNUTSNO LATEX RISK : DO YOU HAVE A PREVIOUS PERSONAL HISTORY OF MORE THAN NINE SURGERIES, SPINA BIFIDA, OR REPEATED CATHERIZATIONS? NO LATEX RISK : ARE YOU FREQUENTLY EXPOSED TO LATEX PRODUCTS IN YOUR OCCUPATION?NO DATE ASKED : 10/01/2020 ALCOHOL USE: NO. ALCOHOL SCREENING DID YOU HAVE A DRINK CONTAINING ALCOHOL IN THE PAST YEAR?NO POINTS0 INTERPRETATIONNEGATIVE RECREATIONAL DRUG USE DRUG USE?NO LANGUAGE LANGUAGES SPOKEN:[place] LEARNING BARRIERS / SPECIAL NEEDS CHANGE FROM LAST VISIT?NO BARRIERS TO LEARNING?NO HEARING IMPAIRED?NO VISION IMPAIRED?YES :CORRECTIVE LENSES COGNITIVELY IMPAIRED?NO READINESS TO LEARN?YES LEARNING PREFERENCES?NO LEARNING CAPABILITIES PRESENT?YES EMOTIONAL BARRIERS?NO SPECIAL DEVICES?NO LOADER HELPER NEEDED?NO ADVANCE DIRECTIVE ADVANCE DIRECTIVE DISCUSSED WITH PATIENT: PATIENT DECLINED INFORMATION ON HCP AT THIS TIME HOSPITALIZATION/MAJOR DIAGNOSTIC PROCEDURE FROM SURGERIES VITAL SIGNS WT 181.4 LBS, HT 66 IN, BMI 29.28 INDEX, BP 140/73 MM HG, HR 59 /MIN, RR 18 /MIN, TEMP 98.1 F, OXYGEN SAT % 98%, SAFE IN ENV? (Y/N) YES, NA INITIALS AW 0911, REVIEWED BY: APA. DEWEY RN. EXAMINATION GENERAL EXAMINATION: A HISTORY AND PHYSICAL EXAM ON THE PATIENT WAS DONE ON 09/24/2020 (DATE OF ORIGINAL ASSESSMENT) IN PREPARATION OF SURGERY/PROCEDURE. I HAVE NOW REASSESSED THIS PATIENT'S HEALTH STATUS AND PERFORMED AN UPDATED EXAM TODAY. ALL CHANGES IN THE PATIENT'S HISTORY, PHYSICAL EXAM, PRE-EXISTING CONDITONS, AND INDICATIONS/CONTRAINDICATIONS TO THE PLANNED PROCEDURE AND ANESTHESIA ARE DOCUMENTED AND EVALUATED BELOW. I ATTEST TO THE ADEQUACY AND APPROPRIATENESS OF MY ASSESSMENT, AND CONFIRM THE NECESSITY FOR THE PLANNED PROCEDURE. THE PATIENT IS ALERT, ORIENTED TIMES THREE AND COOPERATIVE. LUNGS ARE CLEAR TO AUSCULTATION. HEART SHOWS REGULAR RHYTHM, NO MURMURS AND NO GALLOPS. ASSESSMENTS MYALGIA, OTHER SITE - M79.18 (PRIMARY) TREATMENT MYALGIA, OTHER SITE LAB: COMPLETION OF PROCEDURAL VISIT WHEN MEETS CRITERIA (ORDERED FOR 10/02/2020) IMANI PALOMO R 10/02/2020 10:34:40 AM > CRITERIA MET MEDICATION: VALIUM TAB 10MG ORALLY (DIAZEPAM)NONI CAM 10/02/2020 9:20:02 AM > VERIFIED DEWEYIMANI R 10/02/2020 9:23:42 AM > ADMINISTERED MED: PAIN BENADRYL TAB 25MG ORALLY DIPHENHYDRAMINEMAUREAnders,NONI 10/02/2020 9:20:18 AM > VERIFIED DEWEYIMANI R 10/02/2020 9:23:58 AM > ADMINSTERED MED: PAIN NORCO TABLET 5MG/325MG ORALLY HYDROCODONE/ACETAMINOPHENMAURER,NONI 10/02/2020 9:20:37 AM > VERIFIED DEWEYIMANI R 10/02/2020 9:24:11 AM > ADMINSTERED OTHERS NOTES: 10/01/20 1234 PRE-PROCEDURE CALL COMPLETED. Ramya WILKS RN . PROCEDURES PAIN NURSING RECORD PROCEDURE IN ROOM 0909, PHYSICIAN IN ROOM 0944, START 0951, FINISH 0957, PHYSICIAN OUT OF ROOM 0958, OUT OF ROOM 1014, ECG N/A, PATIENT SHIELDED N/A, SAFETY STRAP N/A, PREP ALCOHOL DR. SORIANO, DRESSING TEGADERM Ramya PALOMO RN LOC: IMANI PALOMO 10/02/2020 9:55:49 AM > 1. ALERT, ORIENTED RESP: IMANI PALOMO R 10/02/2020 9:55:52 AM > 1. REGULAR, NO DYSPNEA COLOR: IMANI PALOMO R 10/02/2020 9:55:56 AM > 1. PINK SKIN: IMANI PALOMO R 10/02/2020 9:55:59 AM > 1. WARM, DRY POSITION: IMANI PALOMO R 10/02/2020 9:56:03 AM > 5. SITTING VITALS: IMANI PALOMO R 10/02/2020 10:11:16 AM > 147/84, 69, 18, 99% COMPLETION OF PROCEDURE APPOINTMENT: POST PAIN 2, DRESSING SITE DRY AND INTACT, IV N/A, GAIT STEADY, TEACHING COMPLETED, PATIENT ACKNOWLEDGES UNDERSTANDING YES, PROCEDURE APPOINTMENT COMPLETED AT 1014 BY: Ramya PALOMO RN PN TRIGGER POINT INJECTION WITH STEROIDS PRE PROCEDURE DIAGNOSIS 1. MYALGIA 2. PAIN AT RIGHT NECK AREA, RIGHT SHOULD AREA AND RIGHT THORACIC AREA POST PROCEDURE DIAGNOSIS 1. MYALGIA 2. PAIN AT RIGHT NECK AREA, RIGHT SHOULD AREA AND RIGHT THORACIC AREA PROCEDURE TRIGGER POINT INJECTION AT RIGHT NECK AREA, RIGHT SHOULD AREA AND RIGHT THORACIC AREA SURGEON DR. DWAYNE SORIANO HOME CARE CONSULTANT NONE ANESTHESIA LOCAL PRE PROCEDURE NOTE THE PATIENT HAS A HISTORY OF CHRONIC PAIN AT THE RIGHT NECK AREA, RIGHT SHOULD AREA AND RIGHT THORACIC AREA. I EVALUATED THE PATIENT AND REVIEWED THE CHART. THERE IS EVIDENCE OF BANDS OF TISSUE WITH RESTRICTION OF MOVEMENT AND PRESENCE OF TRIGGER POINT AT THE RIGHT NECK AREA, RIGHT SHOULD AREA AND RIGHT THORACIC AREA. I WENT OVER THE RISKS, ALTERNATIVES, AND BENEFITS ASSOCIATED WITH THIS PROCEDURE. THE PATIENT WOULD LIKE TO PROCEED AND GIVE CONSENT TO PERFORMED THE PROCEDURE. THE PATIENT DENIES UNEXPLAINABLE WEIGHT LOSS, FEVER, CHILLS, OR NEW CHANGES IN URINARY OR BOWEL CONTROL. THE PATIENT IS COVID-19 NEGATIVE DESCRIPTION OF PROCEDURE THE PATIENT WAS BROUGHT TO THE PROCEDURE ROOM AND PLACED IN THE SITTING POSITION. THE AREA WAS CLEANED WITH ALCOHOL. THE PROCEDURE WAS DONE USING ASEPTIC STERILE TECHNIQUE. A TIMEOUT WAS PERFORMED WHERE THE CONSENTED SITE WAS VERIFIED WITH EVERYONE IN THE ROOM. USING A 25-GAUGE NEEDLE, TRIGGER POINTS WERE INJECTED AT THE RIGHT NECK AREA, RIGHT SHOULD AREA AND RIGHT THORACIC AREA WITH A TOTAL OF 40 ML OF BUPIVACAINE 0.25% AND KENALOG 40 MG. THE MEDICATIONS WERE VERIFIED WITH THE NURSE. THERE WAS NO EVIDENCE OF BLOOD OR PARESTHESIA DURING THE PROCEDURE. THE PATIENT WAS SENT TO THE RECOVERY ROOM. THE PATIENT WAS MOVING THE EXTREMITIES AND DOING WELL. THERE WERE NO COMPLICATIONS DURING THE PROCEDURE. ESTIMATED BLOOD LOSS WAS LESS THAN 5 ML POST PROCEDURE NOTE THE PROCEDURE DONE WAS DISCUSSED WITH THE PATIENT. THE PATIENT WILL BE SEEN IN A FOLLOW UP IN THE NEXT FEW WEEKS. I AM LOOKING FOR LONG LASTING PAIN RELIEF FOR THE PATIENT WITH THIS INTERVENTION. INSTRUCTIONS WERE GIVEN, QUESTIONS WERE ANSWERED, AND THE PATIENT EXPRESSED UNDERSTANDING AND AGREES WITH THE PLAN. I, JENNY HAWKINS, DOCUMENTED THE ABOVE INFORMATION ACTING A SCRIBE FOR DR. SORIANO. I HAVE REVIEWED THE ABOVE DOCUMENT, WRITTEN BY JENNY HAWKINS, YOUTH PASTOR, AND I VERIFY THAT IT IS ACCURATE `. PROCEDURE CODES 15757 INJECT TRIGGER POINTS 3/> DISPOSITION & COMMUNICATION FOLLOW UP FOLLOW UP WITH PMO ANALYST (REASON: POST TRIGGER POINT INJECTION RIGHT NECK, RIGHT SHOULDER, RIGHT THORACIC ) ELECTRONICALLY SIGNED BY DWAYNE SORIANO MD, MD ON 10/06/2020 AT 01:59 PM EST DISCLAIMER : THIS IS A VISIT SUMMARY EXTRACTED FROM THE [employer] CHART. IT IS NOT A COPY OF THE [employer] PROGRESS NOTE. ISABELLA
== END ==
LOC: M PAIN 09:15
PROVIDERS: ATTEND Anesthesiology
DX: M79.18 Myalgia, other site (principal); G43.709 Chronic migraine without aura, not intractable, without status migrainosus; M47.812 Spondylosis without myelopathy or radiculopathy, cervical region; G51.0 Bell's palsy; Z79.899 Other long term (current) drug therapy; Z88.5 Allergy status to narcotic agent; Z88.8 Allergy status to other drugs, medicaments and biological substances
CPT/HCPCS: 20553; J3301

== ENCOUNTER → 2020-10-16 | Outpatient (CLI) | payer OTHER ==
--- NOTE | 2020-10-22 02:54 | ECWPNPC ---
PATIENT NAME: STEPHANIE SEYMOUR : 1985 GENDER: FEMALE VISIT DATE: 10/16/2020 DISCHARGE DATE: 10/16/20 1130 VISIT LOCKED DATE TIME: PHYSICIAN: GREG FARRAR RESOURCE: GREG FARRAR REASON FOR APPOINTMENT 1. POST TRIGGER POINT INJECTIONS RIGHT NECK,RIGHT SHOULDER,RIGHT THORACIC HISTORY OF PRESENT ILLNESS GENERAL: HERE FOR POST PROCEDURE FOLLOW-UP. HAD TRIGGER POINT INJECTIONS, RIGHT NECK ON 10/02/2020. PATIENT REPORTS IMPROVEMENT IN HER PAIN. SHE STILL HAS A SMALL AREA THAT IS PROBLEMATIC.-. FALL RISK SCREENING: SCREENING : NO FALLS REPORTED IN THE LAST YEAR. PAIN SCREENING: PATIENT HAS A COMPLAINT OF ACUTE OR CHRONIC PAIN :YES LOCATION OF PAIN:NECK, BOTH SHOULDERS INTENSITY OF PAIN (SCALE OF 1 TO 10):2 WHAT DOES YOUR PAIN FEEL LIKE:ACHING DURATION:CONTINOUS, CONSTANT, ALL DAY PAIN IS INCREASED BY:ACTIVITIES PAIN IS DECREASED BY:OTHERS HEAT AND ICE " NOTHING " NURSING NOTE: -. PAIN CENTER INTAKE QUESTIONS: DO YOU HAVE A HISTORY OF MRSA? :NO DO YOU TAKE A BLOOD THINNERS? :NO DO YOU HAVE ANY BLEEDING DISORDERS? :NO ANY NEW NUMBNESS OR WEAKNESS IN YOUR LEGS OR ARMS? :NO ANY PACEMAKER,DEFIBRILLATOR, OR DORSAL COLUMN STIMULATOR? :NO DO YOU HAVE ANY RASHES OR OPEN SORES? :NO ARE YOU ALLERGIC TO IV DYE? :NO ARE YOU DIABETIC? :NO ANY NEW PROBLEMS WITH YOUR MEDICATIONS? :NO HAVE YOU RECEIVED A VACCINE IN THE PAST 30 DAYS? :NO DO YOU PLAN TO RECEIVE A VACCINE IN THE NEXT 21 DAYS? :NO DO YOU NEED ANY PRESCRIPTION? :NO DO YOU TAKE ANY IMMUNOSUPPRESSIVE MEDICATIONS? :NO IS THERE A CHANCE YOU COULD BE ? :NO ARE YOU BREAST FEEDING? :NO CURRENT MEDICATIONS TAKING ADDERALL XR 5 MG CAPSULE EXTENDED RELEASE 24 HOUR 2 CAPSULES IN THE MORNING ORALLY ONCE A DAY TAKING XANAX 0.5 MG TABLET 1 TABLET ORALLY TWICE A DAY TAKING NAPROXEN 500 MG TABLET 1 TABLET WITH FOOD OR MILK NEEDED ORALLY EVERY 12 HRS NOT-TAKING PREDNISONE 20 MG TABLET 1 TABLET ORALLY TID X 7 DAYS THEN BID X 2 DAYS THEN DAILY X 2 DAYS NOT-TAKING VALTREX 1 GM TABLET 1 TABLET ORALLY THREE TIMES A DAY MEDICATION LIST REVIEWED AND RECONCILED WITH THE PATIENT PAST MEDICAL HISTORY CHRONIC MIGRAINE H/O PSEUDOTUMOR CEREBRI CERVICAL SPONDYLOSIS LEFT CARPAL TUNNEL INCIDENTAL ANEURYSM 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 RIGHT NECK, SHOULDER AND THORACIC PAIN ALLERGIES TOPAMAX: BLINDNESS; HISTORY OF OPEN ANGLE GLAUCOMA - ALLERGY LEXAPRO: BLINDNESS - ALLERGY VICODIN: ITCHY - ALLERGY SOCIAL HISTORY GENERAL: TOBACCO USE ARE YOU A: NEVER SMOKER LATEX QUESTIONNAIRE LATEX ALLERGY : HAVE YOU EVER DEVELOPED ANY TYPE OF REACTION AFTER HANDLING LATEX PRODUCTS SUCH RUBBER GLOVES, CONDOMS, DIAPHRAGMS, BALLOONS, SOCKS, OR UNDERWEAR?NO LATEX ALLERGY : HAVE YOU EVER DEVELOPED ANY TYPE OF REACTION DURING OR AFTER DENTAL APPOINTMENT, VAGINAL/RECTAL EXAMINATION, SURGICAL PROCEDURE, OR ANY OTHER EXPOSURE?NO LATEX RISK : HAVE YOU EVER HAD ANY DIFFICULTY BREATHING OR HIVES AFTER EATING OR HANDLING ANY FRUITS, OR VEGETABLES; SUCH KIWI, BANANAS, STONE FRUITS, OR CHESTNUTSNO LATEX RISK : DO YOU HAVE A PREVIOUS PERSONAL HISTORY OF MORE THAN NINE SURGERIES, SPINA BIFIDA, OR REPEATED CATHERIZATIONS? NO LATEX RISK : ARE YOU FREQUENTLY EXPOSED TO LATEX PRODUCTS IN YOUR OCCUPATION?NO DATE ASKED : 10/16/2020 ALCOHOL USE: NO. ALCOHOL SCREENING DID YOU HAVE A DRINK CONTAINING ALCOHOL IN THE PAST YEAR?NO POINTS0 INTERPRETATIONNEGATIVE RECREATIONAL DRUG USE DRUG USE?NO LANGUAGE LANGUAGES SPOKEN:[place] LEARNING BARRIERS / SPECIAL NEEDS CHANGE FROM LAST VISIT?NO BARRIERS TO LEARNING?NO HEARING IMPAIRED?NO VISION IMPAIRED?YES :CORRECTIVE LENSES COGNITIVELY IMPAIRED?NO READINESS TO LEARN?YES LEARNING PREFERENCES?NO LEARNING CAPABILITIES PRESENT?YES EMOTIONAL BARRIERS?NO SPECIAL DEVICES?NO POWDER HAND NEEDED?NO ADVANCE DIRECTIVE ADVANCE DIRECTIVE DISCUSSED WITH PATIENT: PATIENT DECLINED INFORMATION ON HCP AT THIS TIME REVIEW OF SYSTEMS CONSTITUTIONAL: ANY RECENT FEVER NO, NO . CHILLS NO, NO . WEIGHT CHANGE OF UNKNOWN REASONS NO, NO . GASTROENTEROLOGY: NEW UNEXPLAINABLE CHANGES IN BOWEL CONTROL NO, NO . CONSTIPATION NO, NO . GENITOURINARY: ANY NEW CHANGE IN BLADDER CONTROL? NO, NO . NEUROLOGY: NEW ONSET DIZZINESS OR NEUROLOGICAL CHANGES NOT MENTIONED NO, NO . NEW NUMBNESS OR PAIN PATTERNS NOT MENTIONED AND PERTINENT TO TODAY'S VISIT NO, NO . CARDIOLOGY: NEW CHEST PRESSURE NO, NO . PATIENT DENIES NO, NO . RESPIRATORY: UNEXPLAINABLE COUGH NO, NO . NEW SHORTNESS OF BREATH NO, NO . VITAL SIGNS WT 180.4 LBS, HT 66 IN, BMI 29.11 INDEX, BP 143/79 MM HG, HR 80 /MIN, RR 18 /MIN, TEMP 97.3 F, OXYGEN SAT % 99%, SAFE IN ENV? (Y/N) YES, NA INITIALS SC 10:13T.WOLF ORDONEZ. EXAMINATION GENERAL EXAMINATION: GENERALAWAKE,ALERT ,PLEASANT . PSYCHAFFECT NORMAL . LUNGS:LUNG RODRIGUEZ ARE CLEAR TO AUSCULTATION BILATERALLY. GOOD MOVEMENT OF AIR . HEART:S1, S2 IN A REGULAR RATE AND RHYTHM. NO SIGNIFICANT MURMURS, RUBS OR GALLOPS NOTED . ASSESSMENTS MYALGIA, OTHER SITE - M79.18 (PRIMARY) OTHER CHRONIC PAIN - G89.29 TREATMENT MYALGIA, OTHER SITE REFERRAL TO:PHYSICAL THERAPIST REASON:2XWK X 6 WKS,MASSAGE,MYOFASCIAL RELEASE OTHER CHRONIC PAIN PAIN PROCEDURE LOGDATE OF PROCEDURE10/02/2020ROCEDURE:TRIGGER POINT INJECTION RIGHT NEK,RIGHT SHOULDER, RIGHT THORACICAMOUNT OF PRE SEDATEVALIUM 10, BENADRYL 25MG, HYDROCODONE 5/325MGRESULT:IMPROVEMENT PROCEDURE CODES FA211 ESTABILISHED PATIENT [facility] CHARGE DISPOSITION & COMMUNICATION FOLLOW UP 2 MONTHS (REASON: FOLLOW-UP PHYSICAL THERAPY) ELECTRONICALLY SIGNED BY RENALDO HANSEN ON 10/21/2020 AT 01:17 PM EDT DISCLAIMER : THIS IS A VISIT SUMMARY EXTRACTED FROM THE [employer] CHART. IT IS NOT A COPY OF THE [employer] PROGRESS NOTE. ISABELLA
== END ==
LOC: M PAIN 10:00
PROVIDERS: ATTEND Nurse Practitioner Family
DX: G89.29 Other chronic pain (principal); M79.18 Myalgia, other site; G43.709 Chronic migraine without aura, not intractable, without status migrainosus; M47.812 Spondylosis without myelopathy or radiculopathy, cervical region; Z79.899 Other long term (current) drug therapy; Z88.5 Allergy status to narcotic agent; Z88.8 Allergy status to other drugs, medicaments and biological substances

== ENCOUNTER → 2020-10-30 | Outpatient (CLI) | payer OTHER ==
[~2020-10-30] MED LIST changes: -BUPIVACAINE HCL 0.25% 10ML VIAL As Ordered ONE; -BUPIVACAINE HCL 0.25% 30ML VIAL As Ordered ONE; +ISOVUE-370 76% 100ML VIAL As Ordered ONE; -NORCO, ANEXSIA 5/325MG TABLET (HYDROcodone/ACETAMINOPHEN) As Ordered ONE; -TRIAMCINOLONE ACETONIDE SUSP 40 MG/ML VIAL (J3301) As Ordered ONE; -diazePAM 5MG TABLET As Ordered ONE; -diphenhydrAMINE 25MG CAP As Ordered ONE
--- NOTE | 2020-10-30 15:39 | REPVR ---
PROCEDURE INFORMATION: Exam: CT Angiography Head With Contrast Exam date and time: 10/30/2020 1:16 PM Age: 35 years old Clinical indication: Condition or disease; Aneurysm, cerebral; Additional info: Change in size of aneursym TECHNIQUE: Imaging protocol: Computed tomography angiography of the head with intravenous contrast. 3D rendering (Not supervised by radiologist): MIP and/or 3D reconstructed images were created by the technologist. Radiation optimization: All CT scans at this facility use at least one of these dose optimization techniques: automated exposure control; mA and/or kV adjustment per patient size (includes targeted exams where dose is matched to clinical indication); or iterative reconstruction. Contrast material: ISOVUE 370; Contrast volume: 75 ml; Contrast route: INTRAVENOUS (IV); COMPARISON: CT ANGIOGRAPHY HEAD 72010 11/08/2019 1:01 PM FINDINGS: ANTERIOR CIRCULATION: Right internal carotid artery: Unremarkable. Intracranial segment is patent with no significant stenosis. No aneurysm. Right middle cerebral artery: Unremarkable. No occlusion or significant stenosis. No aneurysm. Right anterior cerebral artery: Unremarkable. No occlusion or significant stenosis. No aneurysm. Left internal carotid artery: Unremarkable. Intracranial segment is patent with no significant stenosis. No aneurysm. Left middle cerebral artery: Unremarkable. No occlusion or significant stenosis. No aneurysm. Left anterior cerebral artery: Unremarkable. No occlusion or significant stenosis. No aneurysm. POSTERIOR CIRCULATION: Right vertebral artery: Unremarkable. No occlusion or significant stenosis. No aneurysm. Left vertebral artery: Unremarkable. No occlusion or significant stenosis. No aneurysm. Basilar artery: Unremarkable. No occlusion or significant stenosis. No aneurysm. Right posterior cerebral artery: Unremarkable. No occlusion or significant stenosis. No aneurysm. Left posterior cerebral artery: Unremarkable. No occlusion or significant stenosis. No aneurysm. Brain: Right parietal ventriculostomy catheter remains in stable position. No definite mass, mass effect, or midline shift. Cerebral ventricles: No ventriculomegaly. Bones/joints: Unremarkable. No acute fracture. Soft tissues: Unremarkable. IMPRESSION: No large vessel stenosis or occlusion. No definite aneurysm. Electronically signed by: Radha Canales On 10/30/2020 15:39:28 PM
== END ==
LOC: M RAD 12:36
PROVIDERS: ATTEND Urology
DX: I67.1 Cerebral aneurysm, nonruptured (principal)
CPT/HCPCS: 70496; Q9967

== ENCOUNTER → 2020-12-31 | Outpatient (CLI) | payer OTHER ==
--- NOTE | 2021-01-02 08:02 | ECWPNPC ---
PATIENT NAME: STEPHANIE SEYMOUR : 1985 GENDER: FEMALE VISIT DATE: 12/31/2020 DISCHARGE DATE: 12/31/20947 VISIT LOCKED DATE TIME: PHYSICIAN: GREG FARRAR RESOURCE: GREG FARRAR REASON FOR APPOINTMENT 1. F/U PHYSICAL THERAPY HISTORY OF PRESENT ILLNESS GENERAL: HERE FOR FOLLOW-UP OF PERSISTENT RIGHT NECK AND RIGHT SCAPULAR PAIN. SHE WAS NOT CONTACTED FOR PHYSICAL THERAPY PER OUR REFERRAL. STATES PAIN HAS INCREASED IN THE RIGHT NECK AND SCAPULAR AREA OVER THE PAST FEW WEEKS. PAIN IS AGGRAVATED IN THIS AREA WITH RANGE OF JOINT MOTION OF THE RIGHT ARM AND MOVEMENT OF HER NECK. ALSO REPORTING NEW ONSET OF THORACIC AND LOW BACK PAIN THAT IS NONRADICULAR. SHE WILL HAVE THAT EVALUATED BY PRIMARY CARE. -. FALL RISK SCREENING: SCREENING : NO FALLS REPORTED IN THE LAST YEAR. PAIN SCREENING: PATIENT HAS A COMPLAINT OF ACUTE OR CHRONIC PAIN :YES LOCATION OF PAIN:NECK, RIGHT SHOULDER, MID BACK RIGHT NECK, RIGHT THORACIC INTENSITY OF PAIN (SCALE OF 1 TO 10):5 WHAT DOES YOUR PAIN FEEL LIKE:ACHING, CONTINOUS DURATION:CONTINOUS, CONSTANT, ALL DAY PAIN IS INCREASED BY:ACTIVITIES PAIN IS DECREASED BY:OTHERS NOTHING REALLY WORK PATIENT STATED NURSING NOTE: -. PAIN CENTER INTAKE QUESTIONS: DO YOU HAVE A HISTORY OF MRSA? :NO DO YOU TAKE A BLOOD THINNERS? :NO DO YOU HAVE ANY BLEEDING DISORDERS? :NO ANY NEW NUMBNESS OR WEAKNESS IN YOUR LEGS OR ARMS? :NO ANY PACEMAKER,DEFIBRILLATOR, OR DORSAL COLUMN STIMULATOR? :NO DO YOU HAVE ANY RASHES OR OPEN SORES? :NO ARE YOU ALLERGIC TO IV DYE? :NO ARE YOU DIABETIC? :NO ANY NEW PROBLEMS WITH YOUR MEDICATIONS? :NO HAVE YOU RECEIVED A VACCINE IN THE PAST 30 DAYS? :NO DO YOU PLAN TO RECEIVE A VACCINE IN THE NEXT 21 DAYS? :NO DO YOU NEED ANY PRESCRIPTION? :NO DO YOU TAKE ANY IMMUNOSUPPRESSIVE MEDICATIONS? :NO IS THERE A CHANCE YOU COULD BE ? :NO ARE YOU BREAST FEEDING? :NO CURRENT MEDICATIONS TAKING ADDERALL XR 5 MG CAPSULE EXTENDED RELEASE 24 HOUR 2 CAPSULES IN THE MORNING ORALLY ONCE A DAY TAKING XANAX 0.5 MG TABLET 1 TABLET ORALLY TWICE A DAY TAKING NAPROXEN 500 MG TABLET 1 TABLET WITH FOOD OR MILK NEEDED ORALLY EVERY 12 HRS NOT-TAKING PREDNISONE 20 MG TABLET 1 TABLET ORALLY TID X 7 DAYS THEN BID X 2 DAYS THEN DAILY X 2 DAYS NOT-TAKING VALTREX 1 GM TABLET 1 TABLET ORALLY THREE TIMES A DAY MEDICATION LIST REVIEWED AND RECONCILED WITH THE PATIENT PAST MEDICAL HISTORY CHRONIC MIGRAINE H/O PSEUDOTUMOR CEREBRI CERVICAL SPONDYLOSIS LEFT CARPAL TUNNEL INCIDENTAL ANEURYSM 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 RIGHT NECK, SHOULDER AND THORACIC PAIN ALLERGIES TOPAMAX: BLINDNESS; HISTORY OF OPEN ANGLE GLAUCOMA - ALLERGY LEXAPRO: BLINDNESS - ALLERGY VICODIN: ITCHY - ALLERGY SOCIAL HISTORY GENERAL: TOBACCO USE ARE YOU A: NEVER SMOKER LATEX QUESTIONNAIRE LATEX ALLERGY : HAVE YOU EVER DEVELOPED ANY TYPE OF REACTION AFTER HANDLING LATEX PRODUCTS SUCH RUBBER GLOVES, CONDOMS, DIAPHRAGMS, BALLOONS, SOCKS, OR UNDERWEAR?NO LATEX ALLERGY : HAVE YOU EVER DEVELOPED ANY TYPE OF REACTION DURING OR AFTER DENTAL APPOINTMENT, VAGINAL/RECTAL EXAMINATION, SURGICAL PROCEDURE, OR ANY OTHER EXPOSURE?NO LATEX RISK : HAVE YOU EVER HAD ANY DIFFICULTY BREATHING OR HIVES AFTER EATING OR HANDLING ANY FRUITS, OR VEGETABLES; SUCH KIWI, BANANAS, STONE FRUITS, OR CHESTNUTSNO LATEX RISK : DO YOU HAVE A PREVIOUS PERSONAL HISTORY OF MORE THAN NINE SURGERIES, SPINA BIFIDA, OR REPEATED CATHERIZATIONS? NO LATEX RISK : ARE YOU FREQUENTLY EXPOSED TO LATEX PRODUCTS IN YOUR OCCUPATION?NO DATE ASKED : 12/31/2020 ALCOHOL USE: NO. ALCOHOL SCREENING DID YOU HAVE A DRINK CONTAINING ALCOHOL IN THE PAST YEAR?NO POINTS0 INTERPRETATIONNEGATIVE RECREATIONAL DRUG USE DRUG USE?NO LANGUAGE LANGUAGES SPOKEN:MOHAWK LEARNING BARRIERS / SPECIAL NEEDS CHANGE FROM LAST VISIT?NO BARRIERS TO LEARNING?NO HEARING IMPAIRED?NO VISION IMPAIRED?YES :CORRECTIVE LENSES COGNITIVELY IMPAIRED?NO READINESS TO LEARN?YES LEARNING PREFERENCES?NO LEARNING CAPABILITIES PRESENT?YES EMOTIONAL BARRIERS?NO SPECIAL DEVICES?NO BENCH MOLDER APPRENTICE NEEDED?NO ADVANCE DIRECTIVE ADVANCE DIRECTIVE DISCUSSED WITH PATIENT: PATIENT DECLINED INFORMATION ON HCP AT THIS TIME REVIEW OF SYSTEMS CONSTITUTIONAL: ANY RECENT FEVER NO, NO . CHILLS NO, NO . WEIGHT CHANGE OF UNKNOWN REASONS NO, NO . GASTROENTEROLOGY: NEW UNEXPLAINABLE CHANGES IN BOWEL CONTROL NO, NO . CONSTIPATION NO, NO . GENITOURINARY: ANY NEW CHANGE IN BLADDER CONTROL? NO, NO . NEUROLOGY: NEW ONSET DIZZINESS OR NEUROLOGICAL CHANGES NOT MENTIONED NO, NO . NEW NUMBNESS OR PAIN PATTERNS NOT MENTIONED AND PERTINENT TO TODAY'S VISIT NO, NO . CARDIOLOGY: NEW CHEST PRESSURE NO, NO . PATIENT DENIES NO, NO . RESPIRATORY: UNEXPLAINABLE COUGH NO, NO . NEW SHORTNESS OF BREATH NO, NO . VITAL SIGNS WT 174 LBS, HT 66 IN, BMI 28.08 INDEX, BP 127/80 MM HG, HR 79 /MIN, RR 18 /MIN, TEMP 98.0 F, OXYGEN SAT % 98%, SAFE IN ENV? (Y/N) YES, NA INITIALS WV 09:12Dhiraj.WOLF ORDONEZ. EXAMINATION GENERAL EXAMINATION: GENERALNO ACUTE DISTRESS, WELL NOURISHED AND HYDRATED. PSYCHAPPROPRIATE MOOD AND AFFECT . NECK:NO LYMPHADENOPATHY, SUPPLE. LUNGS:CLEAR TO AUSCULTATION BILATERALLY, NO WHEEZES, RHONCHI, RALES. HEART:NO MURMURS, REGULAR RATE AND RHYTHM. MUSCULOSKELETAL: TRIGGER POINTS:RIGHT NECK,RIGHT SHOULDER,RIGHT THORACIC.PAIN IS AGGREVATED IN THIS AREA WITH ROJM RIGHT ARM. ASSESSMENTS MYALGIA, OTHER SITE - M79.18 (PRIMARY) TREATMENT MYALGIA, OTHER SITE MEDICATION: VALIUM TAB 10MG ORALLY (DIAZEPAM) (ORDERED FOR 01/14/2021) MED: PAIN BENADRYL TAB 25MG ORALLY DIPHENHYDRAMINE (ORDERED FOR 01/14/2021) MED: PAIN NORCO TABLET 5MG/325MG ORALLY HYDROCODONE/ACETAMINOPHEN (ORDERED FOR 01/14/2021) NOTES: TRIGGER POINT INJECTIONS RIGHT NECK,RIGHT SHOULDER,RIGHT THORACIC PRINTED AND REVIEWED PRE PROCEDURE INFORMATION, PATIENT VERBALIZED UNDERSTANDING SHELLY ORDONEZ. REFERRAL TO:PHYSICAL THERAPIST REASON:2XWK X 6 WKS,MASSAGE,MYOFASCIAL RELEASE PROCEDURE CODES FA211 ESTABILISHED PATIENT [facility] CHARGE DISPOSITION & COMMUNICATION FOLLOW UP POST (REASON: TRIGGER POINT INJECTIONS RIGHT NECK,RIGHT SHOULDER,RIGHT THORACIC/PT FOLLOW UP) ELECTRONICALLY SIGNED BY RENALDO HANSEN ON 01/01/2021 AT 08:39 AM EDT DISCLAIMER : THIS IS A VISIT SUMMARY EXTRACTED FROM THE [employer] CHART. IT IS NOT A COPY OF THE [employer] PROGRESS NOTE. ISABELLA
== END ==
LOC: M PAIN 09:00
PROVIDERS: ATTEND Nurse Practitioner Family
DX: M79.18 Myalgia, other site (principal); G43.709 Chronic migraine without aura, not intractable, without status migrainosus; M47.812 Spondylosis without myelopathy or radiculopathy, cervical region; G51.0 Bell's palsy; Z79.899 Other long term (current) drug therapy; Z88.5 Allergy status to narcotic agent; Z88.8 Allergy status to other drugs, medicaments and biological substances

== ENCOUNTER → 2021-01-24 | Outpatient (CLI) | payer OTHER | LOC: M LABSMTC 09:28 | PROVIDERS: ATTEND Anesthesiology | DX: Z11.52 Encounter for screening for COVID-19 (principal) ==

== ENCOUNTER → 2021-01-29 | Outpatient (CLI) | payer OTHER ==
[~2021-01-29] MED LIST changes: +BUPIVACAINE HCL 0.25% 10ML VIAL As Ordered ONE; +BUPIVACAINE HCL 0.25% 30ML VIAL As Ordered ONE; -ISOVUE-370 76% 100ML VIAL As Ordered ONE; +NORCO, ANEXSIA 5/325MG TABLET (HYDROcodone/ACETAMINOPHEN) As Ordered ONE; +TRIAMCINOLONE ACETONIDE SUSP 40 MG/ML VIAL (J3301) As Ordered ONE; +diazePAM 5MG TABLET As Ordered ONE; +diphenhydrAMINE 25MG CAP As Ordered ONE
--- NOTE | 2021-02-03 02:30 | ECWPNPC ---
PATIENT NAME: STEPHANIE SEYMOUR : 1985 GENDER: FEMALE VISIT DATE: 01/29/2021 DISCHARGE DATE: 01/29/21 1053 VISIT LOCKED DATE TIME: PHYSICIAN: DWAYNE SORIANO MD RESOURCE: DWAYNE SORIANO MD REASON FOR APPOINTMENT 1. TRIGGER POINT INJECTIONS RIGHT NECK,RIGHT SHOULDER,RIGHT THORACIC HISTORY OF PRESENT ILLNESS GENERAL: -. FALL RISK SCREENING: SCREENING : NO FALLS REPORTED IN THE LAST YEAR. PAIN SCREENING: PATIENT HAS A COMPLAINT OF ACUTE OR CHRONIC PAIN :YES LOCATION OF PAIN:NECK, RIGHT SHOULDER MOSTLY RIGHT INTENSITY OF PAIN (SCALE OF 1 TO 10):6 WHAT DOES YOUR PAIN FEEL LIKE:ACHING DURATION:CONSTANT, STEADY PAIN IS INCREASED BY:ACTIVITIES PAIN IS DECREASED BY:OTHERS TPI NURSING NOTE: -. PAIN CENTER INTAKE QUESTIONS: DO YOU HAVE A HISTORY OF MRSA? :NO DO YOU TAKE A BLOOD THINNERS? :NO DO YOU HAVE ANY BLEEDING DISORDERS? :NO ANY NEW NUMBNESS OR WEAKNESS IN YOUR LEGS OR ARMS? :NO ANY PACEMAKER,DEFIBRILLATOR, OR DORSAL COLUMN STIMULATOR? :NO DO YOU HAVE ANY RASHES OR OPEN SORES? :NO ARE YOU ALLERGIC TO IV DYE? :NO ARE YOU DIABETIC? :NO ANY NEW PROBLEMS WITH YOUR MEDICATIONS? :NO HAVE YOU RECEIVED A VACCINE IN THE PAST 30 DAYS? :NO DO YOU PLAN TO RECEIVE A VACCINE IN THE NEXT 21 DAYS? :NO DO YOU TAKE ANY IMMUNOSUPPRESSIVE MEDICATIONS? :NO ANY HISTORY OF SEIZURES? :NO ANY HISTORY OF CARDIAC ISSUES OR EVENTS? :NO DO YOU HAVE ANY KIDNEY OR LIVER DISEASE? :NO DO YOU HAVE SLEEP APNEA? :NO ANY RECENT HEAD INJURY? :NO DO YOU HAVE ANY NEW INFECTIONS? :NO IS THERE A CHANCE YOU COULD BE ? :NO ARE YOU BREAST FEEDING? :NO WHEN DID YOU LAST EAT? : 01/28/211999 WHEN DID YOU LAST DRINK? : MIDNIGHT WHAT DID YOU LAST DRINK? : WATER NAME OF PERSON DRIVING YOU HOME? : -JOHN CASTAÑEDA DO YOU HAVE ANY OTHER QUESTIONS OR CONCERNS? : [place] RIGHT NECK CURRENT MEDICATIONS TAKING ADDERALL XR 5 MG CAPSULE EXTENDED RELEASE 24 HOUR 2 CAPSULES IN THE MORNING ORALLY ONCE A DAY, NOTES: NONE TODAY TAKING XANAX 0.5 MG TABLET 1 TABLET ORALLY TWICE A DAY, NOTES: NONE TODAY TAKING NAPROXEN 500 MG TABLET 1 TABLET WITH FOOD OR MILK NEEDED ORALLY EVERY 12 HRS, NOTES: NONE TODAY NOT-TAKING PREDNISONE 20 MG TABLET 1 TABLET ORALLY TID X 7 DAYS THEN BID X 2 DAYS THEN DAILY X 2 DAYS NOT-TAKING VALTREX 1 GM TABLET 1 TABLET ORALLY THREE TIMES A DAY MEDICATION LIST REVIEWED AND RECONCILED WITH THE PATIENT PAST MEDICAL HISTORY CHRONIC MIGRAINE H/O PSEUDOTUMOR CEREBRI CERVICAL SPONDYLOSIS LEFT CARPAL TUNNEL INCIDENTAL ANEURYSM 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 (Y/N) YES, NA INITIALS AW 0931, REVIEWED BY: Kandis VENTURA RN. EXAMINATION GENERAL EXAMINATION: THE PATIENT IS ALERT, ORIENTED TIMES THREE AND COOPERATIVE. LUNGS ARE CLEAR TO AUSCULTATION. HEART SHOWS REGULAR RHYTHM, NO MURMURS AND NO GALLOPS. ASSESSMENTS MYALGIA, OTHER SITE - M79.18 (PRIMARY) TREATMENT MYALGIA, OTHER SITE COMPLETION OF PROCEDURAL VISIT WHEN MEETS CRITERIASYROXY TOMPKINS 01/29/2021 10:53:27 AM > CRITERIA MET. MEDICATION: VALIUM TAB 10MG ORALLY (DIAZEPAM)AGUILA DURAN 01/29/2021 9:29:02 AM > VERIFIED ROXY VENTURA 01/29/2021 9:43:19 AM > ADMINISTERED. MED: PAIN BENADRYL TAB 25MG ORALLY DIPHENHYDRAMINEAGUILA DURAN 01/29/2021 9:29:40 AM > BENADRYL AGUILA DURAN 01/29/2021 9:45:31 AM > VERIFIED ROXY VENTURA 01/29/2021 9:45:58 AM > ADMINISTERED. MED: PAIN NORCO TABLET 5MG/325MG ORALLY HYDROCODONE/ACETAMINOPHENAGUILA DURAN 01/29/2021 9:29:16 AM > VERIFIED ROXY VENTURA 01/29/2021 9:44:11 AM > ADMINISTERED. PROCEDURES PAIN NURSING RECORD PROCEDURE IN ROOM 0925, PHYSICIAN IN ROOM 1027, START 1033, FINISH 1037, PHYSICIAN OUT OF ROOM 1038, OUT OF ROOM 1053, ECG N/A, PATIENT SHIELDED N/A, SAFETY STRAP N/A, PREP ALCOHOL DR. SORIANO, DRESSING TEGADECHIKA JuvencioLizet BKMARY BETH RN LOC: ROXY VENTURA 01/29/2021 10:33:41 AM > , 1. ALERT, ORIENTED RESP: ROXY VENTURA 01/29/2021 10:33:45 AM > , 1. REGULAR, NO DYSPNEA COLOR: ROXY VENTURA 01/29/2021 10:33:48 AM > , 1. PINK SKIN: ROXY VENTURA 01/29/2021 10:33:52 AM > , 1. WARM, DRY POSITION: ROXY VENTURA 01/29/2021 10:33:55 AM > , 5. SITTING VITALS: ROXY VENTURA 01/29/2021 10:48:15 AM > 144/86, 68, 16, 100% COMPLETION OF PROCEDURE APPOINTMENT: POST PAIN 2, DRESSING SITE DRY AND INTACT, IV N/A, GAIT STEADY, TEACHING COMPLETED, PATIENT ACKNOWLEDGES UNDERSTANDING YES, PROCEDURE APPOINTMENT COMPLETED AT 1053 PN TRIGGER POINT INJECTION WITH STEROIDS PRE PROCEDURE DIAGNOSIS 1. MYALGIA 2. PAIN AT RIGHT NECK AREA, RIGHT SHOULDER AREA AND RIGHT THORACIC AREA POST PROCEDURE DIAGNOSIS 1. MYALGIA 2. PAIN AT RIGHT NECK AREA, RIGHT SHOULDER AREA AND RIGHT THORACIC AREA PROCEDURE TRIGGER POINT INJECTION AT RIGHT NECK AREA, RIGHT SHOULDER AREA AND RIGHT THORACIC AREA SURGEON DR. DWAYNE SORIANO SAP DIRECTOR NONE ANESTHESIA LOCAL PRE PROCEDURE NOTE THE PATIENT HAS A HISTORY OF CHRONIC PAIN AT THE RIGHT NECK AREA, RIGHT SHOULDER AREA AND RIGHT THORACIC AREA. I EVALUATED THE PATIENT AND REVIEWED THE CHART. THERE IS EVIDENCE OF BANDS OF TISSUE WITH RESTRICTION OF MOVEMENT AND PRESENCE OF TRIGGER POINT AT THE RIGHT NECK AREA, RIGHT SHOULDER AREA AND RIGHT THORACIC AREA. I WENT OVER THE RISKS, ALTERNATIVES, AND BENEFITS ASSOCIATED WITH THIS PROCEDURE. THE PATIENT WOULD LIKE TO PROCEED AND GIVE CONSENT TO PERFORMED THE PROCEDURE. THE PATIENT DENIES UNEXPLAINABLE WEIGHT LOSS, FEVER, CHILLS, OR NEW CHANGES IN URINARY OR BOWEL CONTROL. THE PATIENT IS COVID-19 NEGATIVE DESCRIPTION OF PROCEDURE THE PATIENT WAS BROUGHT TO THE PROCEDURE ROOM AND PLACED IN THE SITTING POSITION. THE AREA WAS CLEANED WITH ALCOHOL. THE PROCEDURE WAS DONE USING ASEPTIC STERILE TECHNIQUE. A TIMEOUT WAS PERFORMED WHERE THE CONSENTED SITE WAS VERIFIED WITH EVERYONE IN THE ROOM. USING A 25-GAUGE NEEDLE, TRIGGER POINTS WERE INJECTED AT THE RIGHT NECK AREA, RIGHT SHOULDER AREA AND RIGHT THORACIC AREA WITH A TOTAL OF 40 ML OF BUPIVACAINE 0.25% AND KENALOG 40 MG. THE MEDICATIONS WERE VERIFIED WITH THE NURSE. THERE WAS NO EVIDENCE OF BLOOD OR PARESTHESIA DURING THE PROCEDURE. THE PATIENT WAS SENT TO THE RECOVERY ROOM. THE PATIENT WAS MOVING THE EXTREMITIES AND DOING WELL. THERE WERE NO COMPLICATIONS DURING THE PROCEDURE. ESTIMATED BLOOD LOSS WAS LESS THAN 5 ML POST PROCEDURE NOTE SHE HAS A SQL ENGINEER SHUNT. I DISCUSSED WITH THE PATIENT THAT WE WILL STAY AWAY FROM THE AREA. THE PROCEDURE DONE WAS DISCUSSED WITH THE PATIENT. THE PATIENT WILL BE SEEN IN A FOLLOW UP IN THE NEXT FEW WEEKS. I AM LOOKING FOR LONG LASTING PAIN RELIEF FOR THE PATIENT WITH THIS INTERVENTION. INSTRUCTIONS WERE GIVEN, QUESTIONS WERE ANSWERED, AND THE PATIENT EXPRESSED UNDERSTANDING AND AGREES WITH THE PLAN. I, JENNY HAWKINS, DOCUMENTED THE ABOVE INFORMATION ACTING A SCRIBE FOR DR. SORIANO. I HAVE REVIEWED THE ABOVE DOCUMENT, WRITTEN BY JENNY HAWKINS, FUR SEWER, AND I VERIFY THAT IT IS ACCURATE PROCEDURE CODES 59482 INJECT TRIGGER POINTS 3/> DISPOSITION & COMMUNICATION FOLLOW UP FOLLOW UP WITH PROM BURN OFF OPERATOR (REASON: POST TRIGGER POINT INJECTIONS RIGHT NECK, RIGHT SHOULDER, RIGHT THORACIC) ELECTRONICALLY SIGNED BY DWAYNE SORIANO MD, MD ON 02/02/2021 AT 11:22 AM EDT DISCLAIMER : THIS IS A VISIT SUMMARY EXTRACTED FROM THE [employer] CHART. IT IS NOT A COPY OF THE [employer] PROGRESS NOTE. MTDD
== END ==
LOC: M PAIN 09:15
PROVIDERS: ATTEND Anesthesiology
DX: M79.18 Myalgia, other site (principal); G43.709 Chronic migraine without aura, not intractable, without status migrainosus; M47.812 Spondylosis without myelopathy or radiculopathy, cervical region; G51.0 Bell's palsy; Z79.899 Other long term (current) drug therapy; Z88.5 Allergy status to narcotic agent; Z88.8 Allergy status to other drugs, medicaments and biological substances
CPT/HCPCS: 20553; J3301

== ENCOUNTER → 2021-02-04 | Outpatient (CLI) | payer OTHER ==
[2021-02-04 16:35] LABS: BASO % 0.5 % (0.0-1.0); EOS # 0.1 10^3/uL (0.0-0.5); EOS % 1.1 % (0.0-3.0); HEMOGLOBIN 15.6 g/dl (12.0-15.5); LYMPH # 2.1 10^3/uL (1.5-5.0); MEAN CORPUSCULAR HEMOGLOBIN 28.9 pg (27.0-33.0); MEAN CORPUSCULAR HGB CONC 32.5 g/dl (32.0-36.5); MEAN CORPUSCULAR VOLUME 89.1 fl (80.0-96.0); MONO # 0.5 10^3/uL (0.0-0.8); NEUTROPHILS % 67.9 % (36.0-66.0); PLATELET COUNT, AUTOMATED 317 10^3/uL (150-450); RED BLOOD COUNT 5.39 10^6/uL (4.00-5.40); WHITE BLOOD COUNT 8.8 10^3/uL (4.0-10.0)
[2021-02-04 21:16] LABS: ERYTHROCYTE SEDIMENTATION RATE 4 mm/hr (0-20)
== END ==
LOC: M PLALAB 12:18
PROVIDERS: ATTEND Family Medicine
DX: R20.2 Paresthesia of skin (principal); H91.91 Unspecified hearing loss, right ear; G91.9 Hydrocephalus, unspecified

== ENCOUNTER → 2021-03-01 | Outpatient (CLI) | payer OTHER ==
--- NOTE | 2021-03-02 01:03 | ECWPNPC ---
PATIENT NAME: STEPHANIE SEYMOUR : 1985 GENDER: FEMALE VISIT DATE: 03/01/2021 DISCHARGE DATE: 03/01/21 1150 VISIT LOCKED DATE TIME: PHYSICIAN: GREG FARRAR RESOURCE: GREG FARRAR REASON FOR APPOINTMENT 1. POST TRIGGER POINT INJECTIONS RIGHT NECK,RIGHT SHOULDER,RIGHT THORACIC HISTORY OF PRESENT ILLNESS GENERAL: HERE FOR FOLLOW-UP OF PERSISTENT RIGHT NECK AND RIGHT SHOULDER PAIN. THIS IS A POST PROCEDURE VISIT. HAD TRIGGER POINT INJECTIONS TO RIGHT NECK, RIGHT SHOULDER AND RIGHT THORACIC REGION ON 01/29/2021. REPORTING IMPROVEMENT IN PAIN POSTPROCEDURE. SHE CONTINUES TO HAVE A CONSTANT PAIN IN THAT REGION. SHE WILL BE GOING TO NEUROLOGY TODAY TO HAVE OCCIPITAL BLOCKS DONE THAT THEY HAVE BEEN DOING FOR HER THAT SHE FEELS IN COMBINATION WITH THE TRIGGER POINT INJECTIONS WILL BE VERY HELPFUL. DOING HOME STRETCHING EXERCISES. DISCUSSED TREATMENT PLAN. -. FALL RISK SCREENING: SCREENING : NO FALLS REPORTED IN THE LAST YEAR. PAIN SCREENING: PATIENT HAS A COMPLAINT OF ACUTE OR CHRONIC PAIN :YES LOCATION OF PAIN:OTHER: RIGHT NECK,RIGHT SHOULDER,RIGHT THORACIC INTENSITY OF PAIN (SCALE OF 1 TO 10):4 WHAT DOES YOUR PAIN FEEL LIKE:ACHING, CONTINOUS DURATION:CONTINOUS, CONSTANT, ALL DAY PAIN IS INCREASED BY:ACTIVITIES PAIN IS DECREASED BY:OTHERS NOTHING NURSING NOTE: -. PAIN CENTER INTAKE QUESTIONS: DO YOU HAVE A HISTORY OF MRSA? :NO DO YOU TAKE A BLOOD THINNERS? :NO DO YOU HAVE ANY BLEEDING DISORDERS? :NO ANY NEW NUMBNESS OR WEAKNESS IN YOUR LEGS OR ARMS? :NO ANY PACEMAKER,DEFIBRILLATOR, OR DORSAL COLUMN STIMULATOR? :NO DO YOU HAVE ANY RASHES OR OPEN SORES? :NO ARE YOU ALLERGIC TO IV DYE? :NO ARE YOU DIABETIC? :NO ANY NEW PROBLEMS WITH YOUR MEDICATIONS? :NO HAVE YOU RECEIVED A VACCINE IN THE PAST 30 DAYS? :NO DO YOU PLAN TO RECEIVE A VACCINE IN THE NEXT 21 DAYS? :NO DO YOU NEED ANY PRESCRIPTION? :NO DO YOU TAKE ANY IMMUNOSUPPRESSIVE MEDICATIONS? :NO IS THERE A CHANCE YOU COULD BE ? :NO ARE YOU BREAST FEEDING? :NO CURRENT MEDICATIONS TAKING ADDERALL XR 5 MG CAPSULE EXTENDED RELEASE 24 HOUR 2 CAPSULES IN THE MORNING ORALLY ONCE A DAY, NOTES: NONE TODAY TAKING XANAX 0.5 MG TABLET 1 TABLET ORALLY TWICE A DAY, NOTES: NONE TODAY TAKING NAPROXEN 500 MG TABLET 1 TABLET WITH FOOD OR MILK NEEDED ORALLY EVERY 12 HRS, NOTES: NONE TODAY NOT-TAKING PREDNISONE 20 MG TABLET 1 TABLET ORALLY TID X 7 DAYS THEN BID X 2 DAYS THEN DAILY X 2 DAYS NOT-TAKING VALTREX 1 GM TABLET 1 TABLET ORALLY THREE TIMES A DAY MEDICATION LIST REVIEWED AND RECONCILED WITH THE PATIENT PAST MEDICAL HISTORY CHRONIC MIGRAINE H/O PSEUDOTUMOR CEREBRI CERVICAL SPONDYLOSIS LEFT CARPAL TUNNEL INCIDENTAL ANEURYSM 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 RIGHT NECK, SHOULDER AND THORACIC PAIN ALLERGIES TOPAMAX: BLINDNESS; HISTORY OF OPEN ANGLE GLAUCOMA - ALLERGY LEXAPRO: BLINDNESS - ALLERGY VICODIN: ITCHY - ALLERGY SOCIAL HISTORY GENERAL: TOBACCO USE ARE YOU A: NEVER SMOKER LATEX QUESTIONNAIRE LATEX ALLERGY : HAVE YOU EVER DEVELOPED ANY TYPE OF REACTION AFTER HANDLING LATEX PRODUCTS SUCH RUBBER GLOVES, CONDOMS, DIAPHRAGMS, BALLOONS, SOCKS, OR UNDERWEAR?NO LATEX ALLERGY : HAVE YOU EVER DEVELOPED ANY TYPE OF REACTION DURING OR AFTER DENTAL APPOINTMENT, VAGINAL/RECTAL EXAMINATION, SURGICAL PROCEDURE, OR ANY OTHER EXPOSURE?NO LATEX RISK : HAVE YOU EVER HAD ANY DIFFICULTY BREATHING OR HIVES AFTER EATING OR HANDLING ANY FRUITS, OR VEGETABLES; SUCH KIWI, BANANAS, STONE FRUITS, OR CHESTNUTSNO LATEX RISK : DO YOU HAVE A PREVIOUS PERSONAL HISTORY OF MORE THAN NINE SURGERIES, SPINA BIFIDA, OR REPEATED CATHERIZATIONS? NO LATEX RISK : ARE YOU FREQUENTLY EXPOSED TO LATEX PRODUCTS IN YOUR OCCUPATION?NO DATE ASKED : 03/01/2021 ALCOHOL USE: NO. ALCOHOL SCREENING DID YOU HAVE A DRINK CONTAINING ALCOHOL IN THE PAST YEAR?NO POINTS0 INTERPRETATIONNEGATIVE RECREATIONAL DRUG USE DRUG USE?NO LANGUAGE LANGUAGES SPOKEN:BURMESE LEARNING BARRIERS / SPECIAL NEEDS CHANGE FROM LAST VISIT?NO BARRIERS TO LEARNING?NO HEARING IMPAIRED?NO VISION IMPAIRED?YES :CORRECTIVE LENSES COGNITIVELY IMPAIRED?NO READINESS TO LEARN?YES LEARNING PREFERENCES?NO LEARNING CAPABILITIES PRESENT?YES EMOTIONAL BARRIERS?NO SPECIAL DEVICES?NO FINGERNAIL FORMER NEEDED?NO ADVANCE DIRECTIVE ADVANCE DIRECTIVE DISCUSSED WITH PATIENT: PATIENT DECLINED INFORMATION ON HCP AT THIS TIME VITAL SIGNS WT 175.4 LBS, WT-KG 79.56 KG, HT 66 IN, BMI 28.31 INDEX, BP 140/86 MM HG, REPEAT BP 132/83 MM HG, HR 74 /MIN, RR 18 /MIN, TEMP 98.3 F, OXYGEN SAT % 98%, SAFE IN ENV? (Y/N) YES, NA INITIALS SC 11:30T.WOLF ORDONEZ. EXAMINATION GENERAL EXAMINATION: GENERAL AWAKE,ALERT ,PLEASANT . PSYCH AFFECT NORMAL . LUNGS: LUNG RODRIGUEZ ARE CLEAR TO AUSCULTATION BILATERALLY. GOOD MOVEMENT OF AIR . HEART: S1, S2 IN A REGULAR RATE AND RHYTHM. NO SIGNIFICANT MURMURS, RUBS OR GALLOPS NOTED . ASSESSMENTS MYALGIA, OTHER SITE - M79.18 (PRIMARY) OTHER CHRONIC PAIN - G89.29 TREATMENT MYALGIA, OTHER SITE NOTES: CONTINUE HOME STRETCHING EXERCISES. FOLLOW-UP SCHEDULED IN 2 MONTHS. OTHER CHRONIC PAIN PAIN PROCEDURE [id number] OF PROCEDURE1PROCEDURE:TRIGGER POINT INJECTION RIGHT NECK, RIGHT SHOULDER, RIGHT THORACICAMOUNT OF PRE SEDATEVALIUM 10MG, BENADRYL 25MG, NORCO 5/325MGRESULT:IMPROVEMENT IN PAIN CONTINUES TODAY PROCEDURE CODES FA211 ESTABILISHED PATIENT THE [facility] FACILITY CHARGE DISPOSITION & COMMUNICATION FOLLOW UP 2 MONTHS (REASON: RIGHT NECK, SHOULDER AND THORACIC PAIN) ELECTRONICALLY SIGNED BY RENALDO HANSEN ON 03/01/2021 AT 04:01 PM EDT DISCLAIMER : THIS IS A VISIT SUMMARY EXTRACTED FROM THE [employer] CHART. IT IS NOT A COPY OF THE [employer] PROGRESS NOTE. ISABELLA
== END ==
LOC: M PAIN 11:15
PROVIDERS: ATTEND Nurse Practitioner Family
DX: G89.29 Other chronic pain (principal); M79.18 Myalgia, other site; G43.709 Chronic migraine without aura, not intractable, without status migrainosus; M47.812 Spondylosis without myelopathy or radiculopathy, cervical region; Z79.899 Other long term (current) drug therapy; Z88.5 Allergy status to narcotic agent; Z88.8 Allergy status to other drugs, medicaments and biological substances

== ENCOUNTER → 2021-03-25 | Outpatient (CLI) | payer OTHER ==
--- NOTE | 2021-03-25 16:16 | REP ---
INDICATION: CONTUSION OF RIGHT LESSER TOE(S) W/O DAMAGE TO NAIL, INIT. Right 2nd toe contusion. COMPARISON: No comparison study. TECHNIQUE: Four views of the right forefoot. FINDINGS: Four views of the right forefoot demonstrate normal bones, joints, and soft tissues. No fracture or subluxation is seen. No opaque foreign body noted. IMPRESSION: Negative right toe series series. <Electronically signed by Booker Blanton > 03/25/21 [id number]
== END ==
LOC: M PLAIMG 15:59
PROVIDERS: ATTEND Physician Assistant
DX: S90.121A Contusion of right lesser toe(s) without damage to nail, initial encounter (principal); W18.30XA Fall on same level, unspecified, initial encounter; Y92.009 Unspecified place in unspecified non-institutional (private) residence as the place of occurrence of the external cause

== ENCOUNTER → 2021-07-14 | Outpatient (CLI) | payer OTHER | LOC: M PAIN 14:30 | PROVIDERS: ATTEND Anesthesiology | DX: M79.18 Myalgia, other site (principal); G43.709 Chronic migraine without aura, not intractable, without status migrainosus; M47.812 Spondylosis without myelopathy or radiculopathy, cervical region; G51.0 Bell's palsy; Z79.899 Other long term (current) drug therapy; Z88.5 Allergy status to narcotic agent; Z88.8 Allergy status to other drugs, medicaments and biological substances ==

== ENCOUNTER → 2021-07-20 | Outpatient (CLI) | payer OTHER | LOC: M PAIN 13:45 | PROVIDERS: ATTEND Anesthesiology | DX: M79.10 Myalgia, unspecified site (principal); G43.909 Migraine, unspecified, not intractable, without status migrainosus; Z88.5 Allergy status to narcotic agent; Z88.8 Allergy status to other drugs, medicaments and biological substances; Z79.899 Other long term (current) drug therapy ==

== ENCOUNTER → 2021-09-02 | Outpatient (CLI) | payer OTHER | LOC: M LABSMTC 11:12 | PROVIDERS: ATTEND Anesthesiology | DX: Z11.52 Encounter for screening for COVID-19 (principal) ==

== ENCOUNTER → 2021-09-07 | Outpatient (CLI) | payer OTHER | LOC: M PAIN 10:00 | PROVIDERS: ATTEND Anesthesiology | DX: M79.18 Myalgia, other site (principal); G43.909 Migraine, unspecified, not intractable, without status migrainosus; Z88.5 Allergy status to narcotic agent; Z88.8 Allergy status to other drugs, medicaments and biological substances; Z79.899 Other long term (current) drug therapy | CPT/HCPCS: 20553; J3301 ==

== ENCOUNTER → 2021-11-16 | Outpatient (CLI) | payer OTHER | LOC: M PLAIMG 09:58 | PROVIDERS: ATTEND Nurse Practitioner Adult Health | DX: J01.00 Acute maxillary sinusitis, unspecified (principal) ==

== ENCOUNTER → 2021-11-26 | Outpatient (CLI) | payer OTHER ==
[2021-11-26 13:03] LABS: BASO % 0.4 % (0.0-1.0); EOS # 0.1 10^3/uL (0.0-0.5); EOS % 1.7 % (0.0-3.0); HEMATOCRIT 45.3 % (36.0-47.0); HEMOGLOBIN 15.3 g/dl (12.0-15.5); LYMPH # 2.4 10^3/uL (1.5-5.0); MEAN CORPUSCULAR HEMOGLOBIN 29.5 pg (27.0-33.0); MEAN CORPUSCULAR HGB CONC 33.8 g/dl (32.0-36.5); MEAN CORPUSCULAR VOLUME 87.5 fl (80.0-96.0); MONO # 0.6 10^3/uL (0.0-0.8); MONO % 7.5 % (2.0-8.0); NEUTROPHILS # 4.5 10^3/uL (1.5-8.5); NEUTROPHILS % 59.1 % (36.0-66.0); PLATELET COUNT, AUTOMATED 290 10^3/uL (150-450); RED BLOOD COUNT 5.18 10^6/uL (4.00-5.40); WHITE BLOOD COUNT 7.6 10^3/uL (4.0-10.0)
[2021-11-26 13:45] LABS: ALBUMIN 4.2 GM/DL (3.2-5.2); ALT/SGPT 41 U/L (12-78); BILIRUBIN,TOTAL 0.5 MG/DL (0.2-1.0); BLOOD UREA NITROGEN 7 MG/DL (7-18); CALCIUM LEVEL 9.4 MG/DL (8.5-10.1); CARBON DIOXIDE LEVEL 29 MEQ/L (21-32); CHLORIDE LEVEL 104 MEQ/L (98-107); CHOLESTEROL LEVEL 238 MG/DL (<200); CHOLESTEROL RISK RATIO 4.666 (<5); CREATININE FOR GFR 0.68 MG/DL (0.55-1.30); FREE T4 1.09 NG/DL (0.76-1.46); GLOMERULAR FILTRATION RATE > 60.0 (>60); GLUCOSE, FASTING 90 MG/DL (70-100); HDL CHOLESTEROL 51 MG/DL (>40); LDL CHOLESTEROL 172 MG/DL (<100); NON-HDL-C 187 MG/DL; POTASSIUM SERUM 4.2 MEQ/L (3.5-5.1); SODIUM LEVEL 138 MEQ/L (136-145); THYROID STIMULATING HORMONE 0.928 uIU/ML (0.358-3.740); TOTAL 25(OH) VITAMIN D 33.5 NG/ML (30.0-100.0); TOTAL PROTEIN 7.3 GM/DL (6.4-8.2); TRIGLYCERIDES LEVEL 77 MG/DL (<150)
== END ==
LOC: M PLAIMG 11:38
PROVIDERS: ATTEND Family Medicine
DX: M54.59 Other low back pain (principal)

== ENCOUNTER → 2022-02-07 | Outpatient (CLI) | payer OTHER ==
[~2022-02-07] MED LIST changes: -BUPIVACAINE HCL 0.25% 10ML VIAL As Ordered ONE; -BUPIVACAINE HCL 0.25% 30ML VIAL As Ordered ONE; +GASTROGRAFIN SOLUTION 30ML (Q9963) As Ordered ONE; +ISOVUE-370 76% 100ML VIAL As Ordered ONE; -NORCO, ANEXSIA 5/325MG TABLET (HYDROcodone/ACETAMINOPHEN) As Ordered ONE; -TRIAMCINOLONE ACETONIDE SUSP 40 MG/ML VIAL (J3301) As Ordered ONE; -diazePAM 5MG TABLET As Ordered ONE; -diphenhydrAMINE 25MG CAP As Ordered ONE
== END ==
LOC: M RAD 12:26
PROVIDERS: ATTEND Nurse Practitioner Adult Health
DX: R10.31 Right lower quadrant pain (principal)
CPT/HCPCS: 74177; Q9963; Q9967

== ENCOUNTER → 2022-03-10 | Outpatient (CLI) | payer OTHER ==
[2022-03-10 15:31] LABS: BASO % 0.7 % (0.0-1.0); EOS # 0.1 10^3/uL (0.0-0.5); EOS % 1.1 % (0.0-3.0); HEMATOCRIT 43.5 % (36.0-47.0); HEMOGLOBIN 14.3 g/dl (12.0-15.5); LYMPH # 2.2 10^3/uL (1.5-5.0); LYMPH % 35.9 % (24.0-44.0); MEAN CORPUSCULAR HEMOGLOBIN 28.5 pg (27.0-33.0); MEAN CORPUSCULAR HGB CONC 32.9 g/dl (32.0-36.5); MEAN CORPUSCULAR VOLUME 86.8 fl (80.0-96.0); MONO # 0.4 10^3/uL (0.0-0.8); MONO % 7.2 % (2.0-8.0); NEUTROPHILS # 3.4 10^3/uL (1.5-8.5); NEUTROPHILS % 54.8 % (36.0-66.0); PLATELET COUNT, AUTOMATED 293 10^3/uL (150-450); RED BLOOD COUNT 5.01 10^6/uL (4.00-5.40); WHITE BLOOD COUNT 6.2 10^3/uL (4.0-10.0)
[2022-03-10 16:27] LABS: ERYTHROCYTE SEDIMENTATION RATE 4 mm/hr (0-20)
[2022-03-10 18:35] LABS: ALT/SGPT 34 U/L (12-78); BILIRUBIN,TOTAL 0.4 MG/DL (0.2-1.0); BLOOD UREA NITROGEN 4 MG/DL (7-18); CALCIUM LEVEL 9.2 MG/DL (8.5-10.1); CARBON DIOXIDE LEVEL 26 MEQ/L (21-32); CHLORIDE LEVEL 105 MEQ/L (98-107); CREATININE FOR GFR 0.61 MG/DL (0.55-1.30); FREE T4 0.95 NG/DL (0.76-1.46); GLOMERULAR FILTRATION RATE > 60.0 (>60); GLUCOSE, FASTING 83 MG/DL (70-100); POTASSIUM SERUM 4.1 MEQ/L (3.5-5.1); RHEUMATOID FACTOR QUANT < 10.0 IU/ML (<15.0); SODIUM LEVEL 137 MEQ/L (136-145); THYROID STIMULATING HORMONE 0.772 uIU/ML (0.358-3.740); TOTAL PROTEIN 6.9 GM/DL (6.4-8.2); URIC ACID 4.6 MG/DL (2.6-6.0)
== END ==
LOC: M PLALAB 14:14
PROVIDERS: ATTEND Nurse Practitioner Adult Health
DX: R53.83 Other fatigue (principal)

== ENCOUNTER → 2022-05-31 | Outpatient (CLI) | payer OTHER ==
[2022-06-01 23:07] LABS: ANA (HEP2) Positive (.)
== END ==
LOC: M PLALAB 11:05
PROVIDERS: ATTEND Nurse Practitioner Adult Health
DX: R76.0 Raised antibody titer (principal)

== ENCOUNTER → 2022-12-08 | Outpatient (CLI) | payer OTHER ==
[2022-12-08 18:14] LABS: BASO % 0.4 % (0.0-1.0); EOS # 0.1 10^3/uL (0.0-0.5); EOS % 1.7 % (0.0-3.0); HEMATOCRIT 48.5 % (36.0-47.0); HEMOGLOBIN 16.3 g/dl (12.0-15.5); LYMPH # 2.5 10^3/uL (1.5-5.0); LYMPH % 30.6 % (24.0-44.0); MEAN CORPUSCULAR HEMOGLOBIN 29.4 pg (27.0-33.0); MEAN CORPUSCULAR HGB CONC 33.6 g/dl (32.0-36.5); MEAN CORPUSCULAR VOLUME 87.4 fl (80.0-96.0); MONO # 0.5 10^3/uL (0.0-0.8); MONO % 5.7 % (2.0-8.0); NEUTROPHILS % 61.2 % (36.0-66.0); PLATELET COUNT, AUTOMATED 318 10^3/uL (150-450); RED BLOOD COUNT 5.55 10^6/uL (4.00-5.40); WHITE BLOOD COUNT 8.2 10^3/uL (4.0-10.0)
[2022-12-08 18:23] LABS: APPEARANCE, URINE CLEAR (CLEAR); BACTERIA, URINE AUTO NEGATIVE (NEGATIVE); BILIRUBIN, URINE AUTO NEGATIVE (NEGATIVE); BLOOD, URINE BLOOD NEGATIVE (NEGATIVE); COLOR, URINE YELLOW (YELLOW); GLUCOSE, URINE (UA) AUTO NEGATIVE (NEGATIVE); KETONE, URINE AUTO TRACE mg/dL (NEGATIVE); LEUKOCYTE ESTERASE, URINE AUTO NEGATIVE (NEGATIVE); MUCUS, URINE SMALL (NEGATIVE); NITRITE, URINE AUTO NEGATIVE (NEGATIVE); PROTEIN, URINE AUTO NEGATIVE (NEGATIVE); RBC, URINE AUTO 0 /HPF (0-3); SPECIFIC GRAVITY URINE AUTO 1.013 (1.002-1.035); SQUAMOUS EPITHELIAL CELL UR AU 0 /HPF (0-6); UROBILINOGEN, URINE AUTO 0.2 mg/dL (0.0-2.0); WBC, URINE AUTO 0 /HPF (0-3)
[2022-12-08 18:29] LABS: TOTAL PROTEIN,RANDOM URINE 10.6 MG/DL (0.0-14.0)
[2022-12-08 18:33] LABS: C REACTIVE PROTEIN QUANTITATIV < 0.40 MG/DL (<1.0); MAGNESIUM LEVEL 1.8 MG/DL (1.8-2.4)
[2022-12-08 18:34] LABS: COMPLEMENT C3 131.5 MG/DL (84.0-160.0); COMPLEMENT C4 27.3 MG/DL (12-36); CPK CREATINE PHOSPHOKINASE 147 U/L (34-145); CREATININE,RANDOM URINE 123.7 MG/DL; IRON (FE) 42 UG/DL (50-170)
[2022-12-08 18:38] LABS: TOTAL 25(OH) VITAMIN D 30.4 NG/ML (20.0-100.0); VITAMIN B12 LEVEL 480 PG/ML (211-911)
[2022-12-08 18:56] LABS: ERYTHROCYTE SEDIMENTATION RATE 16 mm/hr (0-20)
== END ==
LOC: M LAB 17:08
PROVIDERS: ATTEND Internal Medicine
DX: R76.8 Other specified abnormal immunological findings in serum (principal); R53.82 Chronic fatigue, unspecified; M25.50 Pain in unspecified joint; M79.10 Myalgia, unspecified site

== ENCOUNTER → 2023-01-11 | Outpatient (CLI) | payer OTHER ==
[2023-01-11 11:00] LABS: BASO % 0.5 % (0.0-1.0); EOS # 0.1 10^3/uL (0.0-0.5); EOS % 1.3 % (0.0-3.0); HEMATOCRIT 46.4 % (36.0-47.0); HEMOGLOBIN 15.5 g/dl (12.0-15.5); LYMPH # 2.3 10^3/uL (1.5-5.0); LYMPH % 31.3 % (24.0-44.0); MEAN CORPUSCULAR HEMOGLOBIN 29.2 pg (27.0-33.0); MEAN CORPUSCULAR HGB CONC 33.4 g/dl (32.0-36.5); MEAN CORPUSCULAR VOLUME 87.5 fl (80.0-96.0); MONO # 0.5 10^3/uL (0.0-0.8); MONO % 7.3 % (2.0-8.0); NEUTROPHILS # 4.4 10^3/uL (1.5-8.5); NEUTROPHILS % 59.3 % (36.0-66.0); PLATELET COUNT, AUTOMATED 284 10^3/uL (150-450); WHITE BLOOD COUNT 7.4 10^3/uL (4.0-10.0)
[2023-01-11 11:21] LABS: ALBUMIN 4.4 G/DL (3.2-5.2); ALKALINE PHOSPHATASE 56 U/L (46-116); ALT/SGPT 34 U/L (7.0-40); AST/SGOT 24 U/L (<34); BILIRUBIN,TOTAL 0.6 MG/DL (0.3-1.2); BLOOD UREA NITROGEN 5 MG/DL (9-23); CALCIUM LEVEL 9.2 MG/DL (8.5-10.1); CARBON DIOXIDE LEVEL 26 MMOL/L (20-31); CHLORIDE LEVEL 104 MMOL/L (98-107); CHOLESTEROL LEVEL 183 MG/DL (<200); CHOLESTEROL RISK RATIO 4.16 (<5); CREATININE FOR GFR 0.69 MG/DL (0.55-1.30); GLOMERULAR FILTRATION RATE > 60.0 (>60); GLUCOSE, FASTING 87 MG/DL (60-100); HDL CHOLESTEROL 43.9 MG/DL (>40); LDL CHOLESTEROL 121.3 MG/DL (<100); NON-HDL-C 139.1 MG/DL; POTASSIUM SERUM 4.1 MMOL/L (3.5-5.1); SODIUM LEVEL 137 MMOL/L (136-145); THYROID STIMULATING HORMONE 1.659 uIU/ML (0.55-4.78); TRIGLYCERIDES LEVEL 89 MG/DL (<150)
== END ==
LOC: M LAB 09:51
PROVIDERS: ATTEND Family Medicine
DX: Z13.29 Encounter for screening for other suspected endocrine disorder (principal)

== ENCOUNTER → 2023-01-11 | Outpatient (CLI) | payer OTHER | LOC: M RAD 09:53 | PROVIDERS: ATTEND Internal Medicine | DX: R52 Pain, unspecified (principal) ==

== ENCOUNTER → 2023-03-14 | Outpatient (CLI) | payer OTHER | LOC: M WHC 09:29 | PROVIDERS: ATTEND Family Medicine | DX: Z12.31 Encounter for screening mammogram for malignant neoplasm of breast (principal); N63.11 Unspecified lump in the right breast, upper outer quadrant; R59.0 Localized enlarged lymph nodes | CPT/HCPCS: 76642; 77066; G0279 ==

== ENCOUNTER → 2023-08-11 | Outpatient (REF) | payer OTHER | LOC: M SFHCDERM 13:48 | PROVIDERS: ATTEND Nurse Practitioner Family | DX: L53.9 Erythematous condition, unspecified (principal) ==

== ENCOUNTER → 2023-08-21 | Outpatient (REF) | payer OTHER ==
[2023-08-21 16:54] LABS: BASO % 0.4 % (0.0-1.0); EOS # 0.1 10^3/uL (0.0-0.5); EOS % 0.9 % (0.0-3.0); HEMATOCRIT 44.5 % (36.0-47.0); HEMOGLOBIN 14.6 g/dl (12.0-15.5); LYMPH # 2.1 10^3/uL (1.5-5.0); LYMPH % 26.3 % (24.0-44.0); MEAN CORPUSCULAR HEMOGLOBIN 29.1 pg (27.0-33.0); MEAN CORPUSCULAR HGB CONC 32.8 g/dl (32.0-36.5); MEAN CORPUSCULAR VOLUME 88.8 fl (80.0-96.0); MONO # 0.4 10^3/uL (0.0-0.8); MONO % 5.2 % (2.0-8.0); NEUTROPHILS # 5.3 10^3/uL (1.5-8.5); NEUTROPHILS % 66.9 % (36.0-66.0); PLATELET COUNT, AUTOMATED 274 10^3/uL (150-450); RED BLOOD COUNT 5.01 10^6/uL (4.00-5.40); WHITE BLOOD COUNT 7.9 10^3/uL (4.0-10.0)
[2023-08-21 17:06] LABS: ERYTHROCYTE SEDIMENTATION RATE 4 mm/hr (0-20)
[2023-08-21 17:14] LABS: C REACTIVE PROTEIN QUANTITATIV < 0.40 MG/DL (<1.0); MAGNESIUM LEVEL 1.7 MG/DL (1.8-2.4)
[2023-08-21 17:15] LABS: CPK CREATINE PHOSPHOKINASE 78 U/L (34-145); IRON (FE) 87 UG/DL (50-170); PERCENT SATURATION 29.9 % (13.2-45.0); TOTAL IRON BINDING CAPACITY 291 UG/DL (250-425)
[2023-08-21 17:20] LABS: TOTAL 25(OH) VITAMIN D 37.4 NG/ML (20.0-100.0)
== END ==
LOC: M SFHCRHEU 13:00
PROVIDERS: ATTEND Internal Medicine
DX: M35.9 Systemic involvement of connective tissue, unspecified (principal); E61.1 Iron deficiency; R53.82 Chronic fatigue, unspecified; M79.10 Myalgia, unspecified site

== ENCOUNTER → 2024-01-02 | Outpatient (REF) | payer OTHER ==
[2024-01-02 16:44] LABS: BASO % 0.4 % (0.0-1.0); EOS # 0.1 10^3/uL (0.0-0.5); EOS % 1.8 % (0.0-3.0); HEMATOCRIT 45.3 % (36.0-47.0); HEMOGLOBIN 15.2 g/dl (12.0-15.5); LYMPH # 2.1 10^3/uL (1.5-5.0); MEAN CORPUSCULAR HEMOGLOBIN 29.5 pg (27.0-33.0); MEAN CORPUSCULAR HGB CONC 33.6 g/dl (32.0-36.5); MONO # 0.5 10^3/uL (0.0-0.8); MONO % 7.1 % (2.0-8.0); NEUTROPHILS # 4.1 10^3/uL (1.5-8.5); NEUTROPHILS % 59.6 % (36.0-66.0); PLATELET COUNT, AUTOMATED 291 10^3/uL (150-450); RED BLOOD COUNT 5.15 10^6/uL (4.00-5.40); WHITE BLOOD COUNT 6.8 10^3/uL (4.0-10.0)
[2024-01-02 16:50] LABS: MAGNESIUM LEVEL 1.8 MG/DL (1.8-2.4)
[2024-01-02 16:52] LABS: PERCENT SATURATION 18.3 % (13.2-45.0)
== END ==
LOC: M SFHCRHEU 12:13
PROVIDERS: ATTEND Internal Medicine
DX: E61.1 Iron deficiency (principal); R53.82 Chronic fatigue, unspecified; M79.10 Myalgia, unspecified site

== ENCOUNTER → 2024-01-22 | Outpatient (CLI) | payer OTHER | LOC: M RAD 11:28 | PROVIDERS: ATTEND Psychiatry & Neurology Neurology | DX: I82.90 Acute embolism and thrombosis of unspecified vein (principal) ==

== ENCOUNTER → 2024-01-24 | Outpatient (CLI) | payer OTHER | LOC: M SOG 07:55 | PROVIDERS: ATTEND Physician Assistant | DX: M25.552 Pain in left hip (principal); M25.551 Pain in right hip ==

== ENCOUNTER → 2024-02-07 | Outpatient (CLI) | payer OTHER | LOC: M SOG 08:00 | PROVIDERS: ATTEND Physician Assistant | DX: M25.562 Pain in left knee (principal) ==

== ENCOUNTER → 2024-03-08 | Outpatient (CLI) | payer OTHER | LOC: M PLAIMG 13:40 | PROVIDERS: ATTEND Physician Assistant | DX: M25.562 Pain in left knee (principal) ==

== ENCOUNTER → 2024-03-11 | Outpatient (CLI) | payer OTHER ==
[~2024-03-11] MED LIST changes: -GASTROGRAFIN SOLUTION 30ML (Q9963) As Ordered ONE; +ISOVUE-300 61% 100ML VIAL As Ordered ONE; -ISOVUE-370 76% 100ML VIAL As Ordered ONE; +LIDOCAINE 1% MDV 20ML VIAL As Ordered ONE; +PROHANCE 279.3MG/ML 5ML VIAL As Ordered ONE
== END ==
LOC: M RAD 09:22
PROVIDERS: ATTEND Physician Assistant
DX: M25.551 Pain in right hip (principal); M25.851 Other specified joint disorders, right hip
CPT/HCPCS: 27093; 73723; 77002; A9576; Q9967

== ENCOUNTER → 2024-05-30 | Outpatient (REF) | payer OTHER ==
[2024-05-30 17:25] LABS: APPEARANCE, URINE CLEAR (CLEAR); BACTERIA, URINE AUTO NEGATIVE (NEGATIVE); BILIRUBIN, URINE AUTO NEGATIVE (NEGATIVE); BLOOD, URINE BLOOD NEGATIVE (NEGATIVE); COLOR, URINE YELLOW (YELLOW); GLUCOSE, URINE (UA) AUTO NEGATIVE (NEGATIVE); KETONE, URINE AUTO NEGATIVE (NEGATIVE); LEUKOCYTE ESTERASE, URINE AUTO NEGATIVE (NEGATIVE); NITRITE, URINE AUTO NEGATIVE (NEGATIVE); PROTEIN, URINE AUTO NEGATIVE (NEGATIVE); RBC, URINE AUTO 0 /HPF (0-3); SQUAMOUS EPITHELIAL CELL UR AU 0 /HPF (0-6); UROBILINOGEN, URINE AUTO 0.2 mg/dL (0.0-2.0); WBC, URINE AUTO 1 /HPF (0-3)
[2024-05-30 18:10] LABS: BASO % 0.4 % (0.0-1.0); EOS # 0.2 10^3/uL (0.0-0.5); EOS % 2.1 % (0.0-3.0); HEMATOCRIT 44.3 % (36.0-47.0); HEMOGLOBIN 14.8 g/dl (12.0-15.5); LYMPH # 2.3 10^3/uL (1.5-5.0); LYMPH % 32.7 % (24.0-44.0); MEAN CORPUSCULAR HGB CONC 33.4 g/dl (32.0-36.5); MEAN CORPUSCULAR VOLUME 89.7 fl (80.0-96.0); MONO # 0.5 10^3/uL (0.0-0.8); MONO % 6.7 % (2.0-8.0); NEUTROPHILS # 4.1 10^3/uL (1.5-8.5); PLATELET COUNT, AUTOMATED 294 10^3/uL (150-450); RED BLOOD COUNT 4.94 10^6/uL (4.00-5.40)
[2024-05-30 18:20] LABS: TOTAL PROTEIN,RANDOM URINE 6.8 MG/DL (0.0-14.0)
[2024-05-30 18:25] LABS: CREATININE,RANDOM URINE 45.4 MG/DL
[2024-05-30 18:28] LABS: COMPLEMENT C3 130.7 MG/DL (84.0-160.0); COMPLEMENT C4 26.6 MG/DL (12-36)
[2024-05-30 18:29] LABS: ALBUMIN 4.1 G/DL (3.2-5.2); ALKALINE PHOSPHATASE 62 U/L (35-104); ALT/SGPT 34 U/L (7.0-40); AST/SGOT 16 U/L (<34); BILIRUBIN,DIRECT 0.2 MG/DL (<0.4); BILIRUBIN,TOTAL 0.6 MG/DL (0.3-1.2); BLOOD UREA NITROGEN 9 MG/DL (9-23); CALCIUM LEVEL 9.3 MG/DL (8.5-10.1); CARBON DIOXIDE LEVEL 29 MMOL/L (20-31); CHLORIDE LEVEL 104 MMOL/L (98-107); CREATININE FOR GFR 0.55 MG/DL (0.55-1.30); GLOMERULAR FILTRATION RATE > 60.0 (>60); GLUCOSE, FASTING 89 MG/DL (60-100); POTASSIUM SERUM 3.5 MMOL/L (3.5-5.1); SODIUM LEVEL 137 MMOL/L (136-145); TOTAL PROTEIN 7.5 G/DL (5.7-8.2)
[2024-05-30 18:31] LABS: TOTAL 25(OH) VITAMIN D 46.2 NG/ML (20.0-100.0)
== END ==
LOC: M SFHCRHEU 13:25
PROVIDERS: ATTEND Internal Medicine
DX: R76.8 Other specified abnormal immunological findings in serum (principal); E55.9 Vitamin D deficiency, unspecified; R53.82 Chronic fatigue, unspecified

== ENCOUNTER → 2024-07-22 | Outpatient (CLI) | payer OTHER | LOC: M PLAIMG 15:30 | PROVIDERS: ATTEND Internal Medicine | DX: M06.4 Inflammatory polyarthropathy (principal) ==

== ENCOUNTER → 2024-11-18 | Outpatient (CLI) | payer OTHER ==
[2024-11-18 17:38] LABS: BASO % 0.5 % (0.0-1.0); EOS # 0.2 10^3/uL (0.0-0.5); EOS % 2.1 % (0.0-3.0); HEMATOCRIT 42.9 % (36.0-47.0); HEMOGLOBIN 14.4 g/dl (12.0-15.5); LYMPH # 2.7 10^3/uL (1.5-5.0); LYMPH % 33.5 % (24.0-44.0); MEAN CORPUSCULAR HEMOGLOBIN 29.6 pg (27.0-33.0); MEAN CORPUSCULAR HGB CONC 33.6 g/dl (32.0-36.5); MEAN CORPUSCULAR VOLUME 88.1 fl (80.0-96.0); MONO # 0.6 10^3/uL (0.0-0.8); MONO % 7.8 % (2.0-8.0); NEUTROPHILS # 4.4 10^3/uL (1.5-8.5); NEUTROPHILS % 55.8 % (36.0-66.0); PLATELET COUNT, AUTOMATED 290 10^3/uL (150-450); RED BLOOD COUNT 4.87 10^6/uL (4.00-5.40); WHITE BLOOD COUNT 7.9 10^3/uL (4.0-10.0)
[2024-11-18 18:01] LABS: ALKALINE PHOSPHATASE 71 U/L (35-104); ALT/SGPT 32 U/L (7.0-40); AST/SGOT 23 U/L (<34); BILIRUBIN,TOTAL 0.3 MG/DL (0.3-1.2); BLOOD UREA NITROGEN 10 MG/DL (9-23); CALCIUM LEVEL 9.7 MG/DL (8.5-10.1); CARBON DIOXIDE LEVEL 28 MMOL/L (20-31); CHLORIDE LEVEL 104 MMOL/L (98-107); CREATININE FOR GFR 0.54 MG/DL (0.55-1.30); GLOMERULAR FILTRATION RATE > 90.0 (>60); GLUCOSE, FASTING 82 MG/DL (60-100); POTASSIUM SERUM 4.2 MMOL/L (3.5-5.1); SODIUM LEVEL 141 MMOL/L (136-145); TOTAL PROTEIN 6.7 G/DL (5.7-8.2)
== END ==
LOC: M PLALAB 14:47
PROVIDERS: ATTEND Orthopaedic Surgery
DX: Z79.1 Long term (current) use of non-steroidal anti-inflammatories (NSAID) (principal)

== ENCOUNTER → 2025-05-08 | Outpatient (REF) | payer OTHER ==
[2025-05-08 15:22] LABS: APPEARANCE, URINE CLEAR (CLEAR); BACTERIA, URINE AUTO NEGATIVE (NEGATIVE); BILIRUBIN, URINE AUTO NEGATIVE (NEGATIVE); BLOOD, URINE BLOOD NEGATIVE (NEGATIVE); GLUCOSE, URINE (UA) AUTO NEGATIVE (NEGATIVE); KETONE, URINE AUTO NEGATIVE (NEGATIVE); LEUKOCYTE ESTERASE, URINE AUTO NEGATIVE (NEGATIVE); NITRITE, URINE AUTO NEGATIVE (NEGATIVE); PROTEIN, URINE AUTO NEGATIVE (NEGATIVE); RBC, URINE AUTO 0 /HPF (0-3); SPECIFIC GRAVITY URINE AUTO 1.006 (1.002-1.035); SQUAMOUS EPITHELIAL CELL UR AU 0 /HPF (0-6); UROBILINOGEN, URINE AUTO 0.2 mg/dL (0.0-2.0); WBC, URINE AUTO 1 /HPF (0-3)
[2025-05-08 16:14] LABS: TOTAL PROTEIN,RANDOM URINE < 6.0 MG/DL (0.0-14.0)
[2025-05-08 18:04] LABS: C REACTIVE PROTEIN QUANTITATIV < 0.50 MG/DL (<1.0)
[2025-05-08 18:06] LABS: COMPLEMENT C4 29.4 MG/DL (12-36); IRON (FE) 91 UG/DL (50-170)
[2025-05-08 18:07] LABS: ALT/SGPT 28 U/L (7.0-40); AST/SGOT 20 U/L (<34); CALCIUM LEVEL 10.0 MG/DL (8.5-10.1); CARBON DIOXIDE LEVEL 28 MMOL/L (20-31); CHLORIDE LEVEL 100 MMOL/L (98-107); CREATININE FOR GFR 0.66 MG/DL (0.55-1.30); GLOMERULAR FILTRATION RATE > 90.0 (>60); PERCENT SATURATION 27.5 % (13.2-45.0); POTASSIUM SERUM 4.0 MMOL/L (3.5-5.1); SODIUM LEVEL 138 MMOL/L (136-145); TOTAL 25(OH) VITAMIN D 31.6 NG/ML (20.0-100.0)
[2025-05-08 18:17] LABS: BASO # 0.1 10^3/uL (0.0-0.2); BASO % 0.5 % (0.0-1.0); EOS # 0.1 10^3/uL (0.0-0.5); EOS % 1.1 % (0.0-3.0); LYMPH # 2.6 10^3/uL (1.5-5.0); LYMPH % 28.0 % (24.0-44.0); MONO # 0.5 10^3/uL (0.0-0.8); MONO % 5.4 % (2.0-8.0); NEUTROPHILS # 6.0 10^3/uL (1.5-8.5); NEUTROPHILS % 64.8 % (36.0-66.0); PLATELET COUNT, AUTOMATED 274 10^3/uL (150-450)
[2025-05-08 18:54] LABS: ERYTHROCYTE SEDIMENTATION RATE 14 mm/hr (0-20)
== END ==
LOC: M SFHCRHEU 14:00
PROVIDERS: ATTEND Internal Medicine
DX: R76.0 Raised antibody titer (principal); M06.4 Inflammatory polyarthropathy; E55.9 Vitamin D deficiency, unspecified; E61.1 Iron deficiency